=== PATIENT | male | born 1960 | race Caucasian/White ===

== ENCOUNTER → 2018-08-10 | Outpatient (CLI) | payer OTHER, SELFPAY ==
[2015-12-24 00:37] VITALS: BMI 25.4
[2018-08-10 12:24] LABS: Absolute Lymphocyte Count 1.38 X10^3/ul (0.83-4.51); Absolute Neutrophil Count 3.8 X10^3/uL (2.0-7.7); Basophil# 0.02 X10^3/uL; Basophil% 0.3 % (0-1); Eosinophils% 1.7 % (0-5); Hematocrit 50.5 % (40-54); Hemoglobin 16.8 g/dl (13.0-16.5); Lymphocyte # 1.38 X10^3/ul (4.0); Lymphocyte % 24.1 % (19-41); Mean Corp Hgb Conc 33.3 g/gl (32-36); Mean Corpuscular Hgb 30.5 pg (27.0-32.0); Mean Corpuscular Volume 91.8 fL (80-94); Mean Platelet Vol. 10.5 fl (6.2-12.0); Monocyte# 0.44 X10^3/uL; Monocyte% 7.7 % (0-10); Neutrophil # 3.77 X10^3/uL (2.7-7.7); POSITIVE COUNT NO; POSITIVE DIFFERENTIAL NO; POSITIVE MORPHOLOGY NO; Platelet Count 331 K/mm3 (150-450); RBC Distribution Width CV 13.2 % (11.6-14.6); RBC Distribution Width SD 43.7 fl (35.1-43.9); White Blood Count 5.7 K/mm3 (4.4-11.0)
[2018-08-10 13:13] LABS: Vitamin B12 659 pg/mL (211-911)
[2018-08-12 16:29] LABS: ANTINUCLEAR ANTIBODIES DIRECT Negative (Negative)
[2018-08-13 10:13] LABS: Testosterone, % Free 3.36 % (1.50-4.20); Testosterone, Total 134 ng/dL (264-916)
== END | disposition home or self-care (01) ==
PROVIDERS: Family Provider Family Medicine; PCP Family Medicine; Referring Provider Family Medicine; Visit Provider Family Medicine
DX: R53.83 Other fatigue (principal)
CPT/HCPCS: 36415; 82607; 84402; 84403; 84443; 85025; 86038

== ENCOUNTER → 2018-09-10 | Outpatient (CLI) | payer OTHER, SELFPAY ==
[2015-12-24 00:37] VITALS: BMI 25.4
[2018-09-14 09:06] LABS: Testosterone, Free 8.09 ng/dL (5.00-21.00)
[2018-09-15 10:38] LABS: Testosterone, % Free 3.02 % (1.50-4.20); Testosterone, Total 268 ng/dL (264-916)
== END | disposition home or self-care (01) ==
LOC: MFPLAB 08:25
PROVIDERS: Family Provider Family Medicine; PCP Family Medicine; Referring Provider Family Medicine; Visit Provider Family Medicine
DX: R79.89 Other specified abnormal findings of blood chemistry (principal)
CPT/HCPCS: 36415; 84402; 84403

== ENCOUNTER → 2019-08-17 16:55 | Outpatient (CLI) | payer OTHER, SELFPAY ==
[2015-12-24 00:37] VITALS: BMI 25.4
--- NOTE | 2019-08-17 16:59 | RAD_ITS ---
HISTORY: dyspnea on exertion EXAMINATION/TECHNIQUE: XR Chest 2 Views: COMPARISON: 12/23/2015 FINDINGS: Normal heart size. Mild hyperinflation. No focal infiltrate. No vascular congestion or pleural effusion. No pneumothorax. The bony thorax appears intact. RAD/Chest PA and Lateral IMPRESSION: 1. No acute cardiopulmonary disease. 2. Hyperinflation. at 0644 Reported and signed by: Gabriel Woods MD Electronically Signed: Gabriel Woods, at 6:43 EDT Tel , Service support ,
== END ==
PROVIDERS: PCP Family Medicine; Referring Provider Family Medicine; Visit Provider Family Medicine
DX: R06.00 Dyspnea, unspecified (principal)
CPT/HCPCS: 71046

== ENCOUNTER → 2019-08-19 15:46 | Outpatient (CLI) | payer OTHER, SELFPAY ==
[2015-12-24 00:37] VITALS: BMI 25.4
[2019-08-19 17:50] LABS: Absolute Lymphocyte Count 2.17 X10^3/uL (0.83-4.51); Absolute Neutrophil Count 3.5 X10^3/uL (2.0-7.7); Basophil# 0.02 X10^3/uL; Basophil% 0.3 % (0-1); Eosinophil# 0.09 X10^3/uL; Eosinophils% 1.4 % (0-5); Hematocrit 46.8 % (40-54); Hemoglobin 15.2 g/dL (13.0-16.5); Lymphocyte # 2.17 X10^3/ul (4.0); Lymphocyte % 33.6 % (19-41); Mean Corp Hgb Conc 32.5 g/dL (32-36); Mean Corpuscular Hgb 30.7 pg (27.0-32.0); Mean Corpuscular Volume 94.5 fL (80-94); Mean Platelet Vol. 10.3 fl (6.2-12.0); Monocyte% 9.3 % (0-10); NRBC Flagged by Analyzer 0 % (0-5); Neutrophil # 3.54 X10^3/uL (2.7-7.7); Neutrophil % 54.9 % (47-70); Platelet Count 319 K/mm3 (150-450); RBC Distribution Width CV 13.2 % (11.6-14.6); RBC Distribution Width SD 45.6 fl (35.1-43.9); Red Blood Count 4.95 M/mm3 (4.6-6.2); White Blood Count 6.5 K/mm3 (4.4-11.0)
[2019-08-19 18:13] LABS: Vitamin D,25 Hydroxy 31.4 ng/mL
[2019-08-19 18:16] LABS: Hemoglobin A1c 5.6 % (3.8-5.6)
[2019-08-19 18:24] LABS: ALB/GLOB Ratio 1.1 RATIO (0.9-2.4); AST(SGOT) 23 U/L (15-37); Alanine Aminotransfer ALT/SGPT 40 U/L (16-61); Albumin, Serum 3.9 g/dL (3.2-5.0); Alkaline Phosphatase 77 U/L (45-117); Anion Gap 8 (5-15); BUN 16 mg/dL (7-18); BUN/Creat Ratio 17.2 RATIO (10-20); Calcium,Total 9.2 mg/dL (8.5-10.1); Chloride 104 mmol/L (98-107); Cholesterol 213 mg/dL (200); Creatinine, Serum 0.93 mg/dL (0.70-1.30); EST Glomerular Filtration Rate 88 mL/min (>60); Est Glom Filt Rate - Afr Amer 107 mL/min (>60); Globulin 3.7 g/dL (2.2-4.2); Glucose 76 mg/dL (74-106); High Density Lipoprotein 41 mg/dL; Potassium 3.6 mmol/L (3.5-5.1); Protein, Total 7.6 g/dL (6.4-8.2); Sodium Level 138 mmol/L (136-145); Thyroid Stim Hormone (TSH) 1.06 uIU/mL (0.358-3.74); Triglycerides 79 mg/dL; Very Low Density Lipoprotein 16 mg/dL (5-40)
[2019-08-25 09:36] LABS: Testosterone, Free 5.85 ng/dL (5.00-21.00)
[2019-08-25 11:30] LABS: Testosterone, % Free 2.36 % (1.50-4.20); Testosterone, Total 248 ng/dL (264-916)
== END ==
PROVIDERS: PCP Family Medicine; Referring Provider Family Medicine; Visit Provider Family Medicine
DX: R53.83 Other fatigue (principal); Z13.220 Encounter for screening for lipoid disorders; R79.89 Other specified abnormal findings of blood chemistry
CPT/HCPCS: 36415; 80053; 80061; 82306; 83036; 84402; 84403; 84443; 85025

== ENCOUNTER → 2019-08-31 07:23 | Outpatient (CLI) | payer OTHER, SELFPAY ==
--- NOTE | 2019-08-31 10:01 | PFTCOMP_ITS ---
COMPLETE PULMONARY FUNCTION TEST INTERPRETATION Brief HPI: Patient is a 58 year old male, currently under the care of Dr. Ascencio, who presents to [facility] for complete pulmonary function tests secondary to diagnosis of dyspnea. Respiratory therapist reports good effort and reproducible results. Interpretation: Forced expiration spirometry shows no large airways obstructive ventilatory defect with an FEV1 of 114% predicted. There is no significant bronchodilator response by strict ATS criteria. Spirograms are of good quality and plateau normally. The respiratory flow volume loop shows a normal pattern. Lung volumes by body plethysmography show a normal total lung capacity at 7.52 L, 112% predicted. All other lung volumes are within normal limits. Diffusion capacity by carbon monoxide is normal at 127% predicted. The airway resistance is normal. No previous pulmonary function tests were available for review. Impression: These pulmonary function tests are within normal limits
== END ==
PROVIDERS: PCP Family Medicine; Referring Provider Family Medicine; Visit Provider Family Medicine
DX: R06.09 Other forms of dyspnea (principal)
CPT/HCPCS: 94060; 94726; 94729

== ENCOUNTER → 2020-01-02 09:05 | Outpatient (CLI) | payer OTHER, SELFPAY ==
[2015-12-24 00:37] VITALS: BMI 25.4
[2020-01-02 09:51] LABS: Absolute Lymphocyte Count 1.71 X10^3/uL (0.83-4.51); Absolute Neutrophil Count 3.4 X10^3/uL (2.0-7.7); Basophil# 0.06 X10^3/uL; Eosinophil# 0.19 X10^3/uL; Eosinophils% 3.2 % (0-5); Hematocrit 51.9 % (40-54); Hemoglobin 16.4 g/dL (13.0-16.5); Lymphocyte # 1.71 X10^3/ul (4.0); Lymphocyte % 29.2 % (19-41); Mean Corp Hgb Conc 31.6 g/dL (32-36); Mean Corpuscular Hgb 29.9 pg (27.0-32.0); Mean Corpuscular Volume 94.7 fL (80-94); Mean Platelet Vol. 10.3 fl (6.2-12.0); Monocyte# 0.47 X10^3/uL; NRBC Flagged by Analyzer 0 % (0-5); Neutrophil % 58.3 % (47-70); Platelet Count 325 K/mm3 (150-450); RBC Distribution Width CV 12.5 % (11.6-14.6); RBC Distribution Width SD 44.1 fl (35.1-43.9); Red Blood Count 5.48 M/mm3 (4.6-6.2); White Blood Count 5.9 K/mm3 (4.4-11.0)
[2020-01-02 10:04] LABS: Alanine Aminotransfer ALT/SGPT 52 U/L (16-61); Cholesterol 173 mg/dL (200); Creatinine, Serum 0.98 mg/dL (0.70-1.30); EST Glomerular Filtration Rate 83 mL/min (>60); Est Glom Filt Rate - Afr Amer 101 mL/min (>60); High Density Lipoprotein 51 mg/dL; Triglycerides 99 mg/dL; Very Low Density Lipoprotein 20 mg/dL (5-40)
== END ==
PROVIDERS: PCP Family Medicine; Visit Provider Family Medicine
DX: E78.5 Hyperlipidemia, unspecified (principal); J45.909 Unspecified asthma, uncomplicated
CPT/HCPCS: 36415; 80061; 82565; 84460; 85025

== ENCOUNTER 2020-10-02 06:47 | Day surgery (SDC) | payer OTHER, SELFPAY ==
[2020-10-02 07:11] VITALS: BP 113/83; PULSE 76; RESP 14; TEMP 36.9; O2SAT 97; BMI 24.6
[2020-10-02] MEDS: Lactated Ringers 1,000 ML 100 ML IV (07:23)
--- NOTE | 2020-10-02 07:48 | HP.PCM_ITS ---
HPI - General HPI Narrative HETAL BANERJEE, is a 59 M who presents for screening colonoscopy. The patient reports his last colonoscopy was normal and it was 10 years ago. He has no abdominal pain or blood in his stool. He has no family history of colon cancer. [facility] Medical History (Updated 10/02/20 @ 07:[address] Jayant Yu MD) Asthma High cholesterol History of diverticulitis Low iron Shortness of breath on exertion Sleep apnea Wears glasses Home Medications Iron 325 mg PO DAILY 12/24/15 [History Last Taken 12/23/15 09:00] Multivitamin 1 tab PO DAILY 12/24/15 [History Last Taken Unknown] acetaminophen [Tylenol] 650 mg PO Q6H PRN PRN #0 tablet 12/25/15 [Rx Last Taken Unknown] ibuprofen 600 mg PO 4X/DAY PRN #1 tab 12/25/15 [Rx Last Taken Unknown] Lactobacillus acidophilus [Acidophilus] 1,000 mmu cells PO DAILY 09/28/20 [History Last Taken Unknown] albuterol mcg INHALATION 09/28/20 [History Last Taken Unknown] ascorbic acid (vitamin C) [Vitamin C] 500 mg PO DAILY 09/28/20 [History Last Taken Unknown] budesonide [Pulmicort Flexhaler] 1 inh INHALATION DAILY PRN PRN 09/28/20 [History Last Taken Unknown] cholecalciferol (vitamin D3) [Vitamin D3] 125 mcg PO DAILY 09/28/20 [History Last Taken Unknown] pravastatin 40 mg PO DAILY 09/28/20 [History Last Taken Unknown] Allergy/AdvReac Type Severity Reaction Status Date / Time No Known Allergies Allergy Verified 09/28/20 12:19 Social History Smoking Status: Never smoker Past Medical/Surgical History Planned Operation Planned Operative Procedure/s: colonoscopy Previous Hospitalizations/Surgeries HX Hospitalizations: No Any Problems With Anesthesia: No You/Your Family Experience Fever (Hyperthermia) With Anes: No Cholinesterase deficiency: No Cardiovascular Hx Chest Pain within Last 2 months: No Hx of Irregular Heartbeat and/or Afib: No Hx Heart Attack: No Hx Hypertension: No Hx Cardiac Surgery/Stents/Etc.: No Hx Pain in Legs when Walking/Leg Cramps: No Respiratory Hx Chronic Obstructive Pulmonary Disease (COPD): No Hx Asthma: No Hx Emphysema: No Hx Sleep Apnea: Yes CPAP: Yes BIPAP: No Hx Respiratory Tract Infection/Cold (presently): No Result (for STOP score): Positive Hx Smoking: Yes Smoking Status: Never smoker Gastrointestinal Hx Gastrointestinal Bleed: No Hx Ulcer: No Difficulty Chewing/Swallowing: No Hx Unplanned Weight Loss of 20#: No Neurological Hx Seizures: No Hx Multiple Sclerosis: No Hx Parkinson's Disease: No Hx Back Injury/Pain: No Does patient have nerve stimulator: No Blood Disorder Hx Hepatitis: No Hx Cirrhosis: No Hx Anemia: No Hx Blood Disorders: No Genitourinary Hx Renal Disease: No Hx Dialysis: No Musculoskeletal Hx Arthritis: No Hx Rheumatoid Arthritis: No Endocrine Hx Diabetes: No Thyroid Disease: No Psycho/Social Hx Substance Use: No Hx Alcohol Use: No Hx Anxiety: No Hx Depression: No Hx Dementia: No Miscellaneous Hx Cancer: No Recent Exposure to Contagious Disease: No Allergies No Known Allergies Allergy (Verified 09/28/20 12:19) Maternal: Diabetes Paternal: No pertinent history Discharge Who Could Help: friend After D/C, Where Do you Plan to Go: Return Home Vital Signs Vital Signs Vital Signs: 10/02/20 07:11 Temperature 98.4 F Temperature Source Temporal Pulse Rate 76 Respiratory Rate 14 Respiratory Pattern Normal Blood Pressure 113/83 H Blood Pressure Mean 93 Blood Pressure Source Monitor Pulse Ox 97 Oxygen Delivery Method Room Air Weight Weight: 176 lb 9.444 oz Body Mass Index (BMI) 24.6 Physical Exam Const alert and oriented x3 Resp normal respiratory effort and normal air movement Cardio regular rate and regular rhythm GI soft to palpation, non-tender and non-distended Assessment & Plan Assessment/Plan (1) Screen for colon cancer: PLAN: Patient here for screening colonoscopy. I explained endoscopy in detail to the patient. I explained the risks including but not limited to stroke or heart attack with anesthesia, perforation of the GI tract, bleeding, infection. I explained that any of these could necessitate further emergency surgery. The patient understands and all questions were answered sufficiently. The patient wishes to proceed with procedure. Jayant Yu MD Pager: [facility] [address] [place] [address], [address] [place] [address] Office: Surgery Risks - Colonoscopy Risks Include but are not Limited To: Risks include but are not limited to: Bleeding, perforation requiring further surgery, inability to complete colonoscopy requiring barium enema.
[2020-10-02 08:12] VITALS: BP 111/91; BP 113/83; PULSE 67; RESP 16; TEMP 36.1; O2SAT 95
--- NOTE | 2020-10-02 08:12 | OP.COLON_ITS ---
Patient Name: Bertram Thomas Procedure Date: 10/02/2020 7:48 AM Date of : 1960 Age: 59 Procedure: Colonoscopy Indications: Screening for colorectal malignant neoplasm Providers: Jayant Yu MD Referring MD: Jayant Yu MD Medicines: Monitored Anesthesia Care Patient Profile: This is a 59 year old male. Refer to note in patient chart for documentation of history and physical. Last Colonoscopy: 10 years ago. Complications: No immediate complications. Procedure: Pre-Anesthesia Assessment: - Prior to the procedure, a History and Physical was performed, and patient medications and allergies were reviewed. The patient's tolerance of previous anesthesia was also reviewed. The risks and benefits of the procedure and the sedation options and risks were discussed with the patient. All questions were answered, and informed consent was obtained. Prior Anticoagulants: The patient has taken no previous anticoagulant or antiplatelet agents. After reviewing the risks and benefits, the patient was deemed in satisfactory condition to undergo the procedure. After I obtained informed consent, the scope was passed under direct vision. Throughout the procedure, the patient's blood pressure, pulse, and oxygen saturations were monitored continuously. The colonoscope was introduced through the anus and advanced to the cecum, identified by appendiceal orifice and ileocecal valve. The colonoscopy was performed without difficulty. The patient tolerated the procedure well. The quality of the bowel preparation was good. Scope In: 7:56:25 AM Scope Withdrawal Time 0 hours 6 minutes 2 seconds Scope Out: 8:08:28 AM Total Procedure Duration Time 0 hours 12 minutes 3 seconds Findings: The entire examined colon appeared normal on direct and retroflexion views. Impression: - The entire examined colon is normal on direct and retroflexion views. - No specimens collected. Recommendation: - Discharge patient to home. - Resume previous diet. - Continue present medications. - Repeat colonoscopy in 10 years for screening purposes. Procedure Code(s): --- Professional --- 60852, Colonoscopy, flexible; diagnostic, including collection of specimen(s) by brushing or washing, when performed (separate procedure) Diagnosis Code(s): --- Professional --- Z12.11, Encounter for screening for malignant neoplasm of colon CPT copyright 2017 [employer]. All rights reserved. The codes documented in this report are preliminary and upon appeals representative review may be revised to meet current compliance requirements. Jayant Yu MD 10/02/2020 8:12:08 AM This report has been signed electronically. Number of Addenda: 0 Note Initiated On: 10/02/2020 7:48 AM
--- NOTE | 2020-10-02 08:13 | OP.CCLET_ITS ---
10/02/2020 Thai Asecncio [address] [place] [address] Re : Colonoscopy procedure for Bertram Thomas Dear Dr. Ascencio This procedure was performed on Friday, October 02, 2020. My impressions and recommendations are as follows: Impressions : - The entire examined colon is normal on direct and retroflexion views. - No specimens collected. Recommendations : - Discharge patient to home. - Resume previous diet. - Continue present medications. - Repeat colonoscopy in 10 years for screening purposes. My findings are described in the full procedure note, which is enclosed. If I can be of further assistance, please feel free to contact me at Doctor phone number(s): , Work: . Sincerely, Jayant Yu MD 10/02/2020 8:12:08 AM This report has been signed electronically.
[2020-10-02 08:17] VITALS: BP 105/85; BP 113/83; PULSE 61; RESP 18; O2SAT 97
[2020-10-02 08:22] VITALS: BP 109/79; BP 113/83; PULSE 67; RESP 16; O2SAT 95
[2020-10-02 08:27] VITALS: BP 104/74; BP 113/83; PULSE 62; RESP 16; TEMP 36.6; O2SAT 96
[2020-10-02 08:45] VITALS: BP 113/83
== END 2020-10-02 08:49 ==
LOC: EN 06:47 → AC 06:48
PROVIDERS: PCP Family Medicine; Referring Provider Family Medicine; Visit Provider Surgery
PROC: 0DJD8ZZ Inspection of Lower Intestinal Tract, Via Natural or Artificial Opening Endoscopic (ICD-10-PCS; CPT 45378; principal; 2020-10-02 07:55)
DX: Z12.11 Encounter for screening for malignant neoplasm of colon (principal); E78.00 Pure hypercholesterolemia, unspecified; G47.30 Sleep apnea, unspecified; J45.909 Unspecified asthma, uncomplicated; Z87.19 Personal history of other diseases of the digestive system; Z79.899 Other long term (current) drug therapy
CPT/HCPCS: 45378; 87426; C9803; J7120; J2405

== ENCOUNTER 2020-11-22 16:36 | Emergency (ER) | payer OTHER, SELFPAY ==
[2020-11-22 16:38] VITALS: BP 100/78; PULSE 108; RESP 17; TEMP 37; O2SAT 95; BMI 23.7
--- NOTE | 2020-11-22 17:08 | EKG12_ITS ---
Test Reason : SYNCOPE Blood Pressure : / mmHG Vent. Rate : 094 BPM Atrial Rate : 094 BPM P-R Int : 128 ms QRS Dur : 082 ms QT Int : 326 ms P-R-T Axes : 040 033 047 degrees QTc Int : 407 ms Normal sinus rhythm Normal ECG Confirmed by KVNG LOPEZ, TOMAS ([id number]), development editor CATALINA TORRES ([id number]) on 11/27/2020 8:28:56 AM Referred By: JORJE Confirmed By:ALBERTO CALDERON MD
--- NOTE | 2020-11-22 17:10 | EDS_ITS ---
HPI History of Present Illness Chief Complaint: Syncope Narrative Narrative: Patient with past medical history of asthma, and obstructive sleep apnea presents with generalized weakness, fever, and chills,. He states that his symptoms began last Thursday, approximately 8 days ago. The following day, he went to [facility] and had a Covid test performed. He states he got his results 2 days following that, and was diagnosed as COVID-19 positive. A few days ago, he felt very weak, and was trying to feed his cat, and had a brief syncopal episode. He denies any true injury from the syncopal episode. He states he feels short of breath, has a nonproductive cough, and just generally weak. He denies any current fever, but has been chilling. No chest pain. Continued shortness of breath. He denies any leg swelling. No other symptoms. [facility] Medical History (Updated 11/22/20 @ 18:53 by Richie Almeida MD) Asthma High cholesterol History of diverticulitis Low iron Shortness of breath on exertion Sleep apnea Wears glasses Home Medications Iron 325 mg PO DAILY 12/24/15 [History Last Taken 12/23/15 09:00] Multivitamin 1 tab PO DAILY 12/24/15 [History Last Taken Unknown] acetaminophen [Tylenol] 650 mg PO Q6H PRN PRN #0 tablet 12/25/15 [Rx Last Taken Unknown] ibuprofen 600 mg PO 4X/DAY PRN #1 tab 12/25/15 [Rx Last Taken Unknown] Lactobacillus acidophilus [Acidophilus] 1,000 mmu cells PO DAILY 09/28/20 [History Last Taken Unknown] albuterol 1 mcg INHALATION Q4H PRN PRN 09/28/20 [History Last Taken Unknown] ascorbic acid (vitamin C) [Vitamin C] 500 mg PO DAILY 09/28/20 [History Last Taken Unknown] budesonide [Pulmicort Flexhaler] 1 inh INHALATION DAILY PRN PRN 09/28/20 [History Last Taken Unknown] cholecalciferol (vitamin D3) [Vitamin D3] 125 mcg PO DAILY 09/28/20 [History Last Taken Unknown] pravastatin 40 mg PO DAILY 09/28/20 [History Last Taken Unknown] prednisone 40 mg PO DAILY #14 tab 11/22/20 [Rx Last Taken Unknown] Allergy/AdvReac Type Severity Reaction Status Date / Time No Known Allergies Allergy Verified 11/22/20 16:38 Social History Smoking Status: Never smoker ROS ROS ED ROS Narrative Constitutional: Positive fever, positive chills. HEENT: No sore throat. No neck pain. No loss of vision. No rhinorrhea. Cardiovascular: No chest pain. No palpitations. No pedal edema. Respiratory: Positive nonproductive cough, increased shortness of breath. Abdominal: No abdominal pain. No nausea. No vomiting. Genitourinary: No dysuria. No hematuria. Musculoskeletal: No myalgias. No arthralgias. Neurologic: No headaches. No dizziness. No lightheadedness. Reported syncope. Generalized weakness. Skin: No rash. No change in color. Psychiatric: No depression. No anxiety. EXAM Physical Exam Narrative Exam Narrative: Afebrile. Vital signs noted. HEENT: Normocephalic. Atraumatic. PERRL, EOMI. Neck soft and supple. No point tenderness or step off. Cardiovascular: Regular rate and rhythm, intermittent tachycardia. No murmurs, rubs, or gallops appreciated. Respiratory: No tachypnea. Lungs clear to auscultation bilaterally. Gastrointestinal: Abdomen soft, nontender, with normoactive bowel sounds. No rebound or guarding. Neurological: Awake. Alert. Nonfocal, nonlateralizing. Skin: No rash. Normal color. No pallor. Musculoskeletal: No pedal edema. Full range of motion extremities. Const Vital Signs: 11/22/20 16:38 11/22/20 17:33 11/22/20 18:20 Temperature 98.6 F Temperature Source Temporal Pulse Rate 108 H 98 Respiratory Rate 17 18 Respiratory Effort Normal Non-Labored Respiratory Pattern Normal Blood Pressure 100/78 122/84 H Blood Pressure Mean 85 96 Pulse Ox 95 95 Oxygen Delivery Method Room Air Room Air MDM MDM MDM Narrative Medical decision making narrative: Patient has been diagnosed as an outpatient with COVID-19. I do feel that these are his symptoms of disease. Blood pressure is currently 100/78. Pulse slightly elevated at 108. He is afebrile. Pulse ox at rest is 95%. He will be ambulated. His EKG demonstrates normal sinus rhythm at 94 bpm without ectopy or acute ST changes, no significant change from previous. He has a low white count of 3.9 consistent with his COVID-19 diagnosis. Hemoglobin stable at 16.7, mild hemoconcentration. His electrolyte panel is grossly unremarkable. Lactic acid is normal at 0.9. His chest x-ray shows no acute process. He states he has enough inhalers at home. I will start him on a prednisone burst. Given his chronic lung disease and his age over 18, he was referred for monoclonal antibody treatment for his COVID-19. I feel he can be discharged safely home with follow-up. Return instructions to the emergency department were reviewed. Disposition is discharged home in stable condition. Lab Data Attestation: I reviewed the patient's lab results. Labs: Laboratory Results - last 24 hr 11/22/20 11/22/20 11/22/20 17:30 17:30 17:30 WBC 3.9 L RBC 5.40 Hgb 16.7 H Hct 49.2 MCV 91.1 MCH 30.9 MCHC 33.9 RDW Std Deviation 41.4 RDW Coeff of Yahir 12.3 Plt Count 155 MPV 10.5 Immature Gran % (Auto) 0.500 Neut % (Auto) 66.9 Lymph % (Auto) 21.3 Morehouse % (Auto) 10.3 H Eos % (Auto) 0.5 Baso % (Auto) 0.5 Absolute Neuts (auto) 2.6 Absolute Lymphs (auto) 0.83 Nucleated RBC % 0 Sodium 136 Potassium 4.1 Chloride 102 Carbon Dioxide 28.0 Anion Gap 6 BUN 15 Creatinine 1.09 Estim Creat Clear Calc 77.72 Est GFR (MDRD) Af Amer 89 Est GFR (MDRD) Non-Af 73 BUN/Creatinine Ratio 13.8 Glucose 112 H Lactic Acid 0.9 Calcium 8.6 Total Bilirubin 0.50 AST 42 H ALT 53 Alkaline Phosphatase 67 Total Protein 7.1 Albumin 3.2 Globulin 3.9 Albumin/Globulin Ratio 0.8 L Radiography Diagnostic Testing: Radiology Impression Chest X-Ray 11/22/20 17:40 IMPRESSION: No acute process Electronically Signed: Mc Llamas MD at 18:18 EDT , Service support , Discharge Plan Triage Chief Complaint: Syncope ED Provider: Richie Almeida Dx/Rx/DC Orders Clinical Impression: COVID-19, Dehydration, Syncope and collapse Instructions: Coronavirus Disease 2019 (COVID-19): Caring for Yourself or Others, Dehydration, ED Dizziness or Syncope ... Prescriptions: New prednisone 20 mg tablet 40 mg PO DAILY Qty: 14 RF: 0 No Action Iron 325 mg PO DAILY RF: 0 Multivitamin 1 tab PO DAILY RF: 0 acetaminophen [Tylenol] 325 MG tablet 650 mg PO Q6H PRN PRN (Reason: Mild Pain (scale 0-3)/T>100.7) Qty: 0 RF: 0 ibuprofen 600 MG tablet 600 mg PO 4X/DAY PRN (Reason: Pain) Qty: 1 RF: 0 ascorbic acid (vitamin C) [Vitamin C] 500 mg Tablet 500 mg PO DAILY RF: 0 Acidophilus Tablet 1,000 mmu cells PO DAILY RF: 0 cholecalciferol (vitamin D3) [Vitamin D3] 125 mcg (5,000 unit) Tablet 125 mcg PO DAILY RF: 0 pravastatin 40 mg tablet 40 mg PO DAILY RF: 0 albuterol 90 mcg/actuation Aerosol 1 mcg INHALATION Q4H PRN PRN (Reason: Shortness Of Breath) RF: 0 Pulmicort Flexhaler 90 mcg/actuation aerosol powdr breath activated 1 inh INHALATION DAILY PRN PRN (Reason: Wheezing) RF: 0 Other Ambulatory Orders: COVID Outpatient Monoclonal Antibody Referral (Routine) Location: None Selected Ordered By: Richie Almeida Primary Care Provider: Thai Ascencio Referrals: Thai Ascencio MD [Primary Care Provider] - 11/29/20 Disposition Disposition: Home, Self Care
[2020-11-22] MEDS: 0.9% Normal Saline 1,000 ML 1000 ML IV (17:32)
[2020-11-22 17:36] LABS: Absolute Lymphocyte Count 0.83 X10^3/uL (0.83-4.51); Absolute Neutrophil Count 2.6 X10^3/uL (2.0-7.7); Basophil# 0.02 X10^3/uL; Basophil% 0.5 % (0-1); Eosinophil# 0.02 X10^3/uL; Eosinophils% 0.5 % (0-5); Hematocrit 49.2 % (40-54); Hemoglobin 16.7 g/dL (13.0-16.5); Lymphocyte # 0.83 X10^3/ul (0.83-4.51); Lymphocyte % 21.3 % (19-41); Mean Corp Hgb Conc 33.9 g/dL (32-36); Mean Corpuscular Hgb 30.9 pg (27.0-32.0); Mean Corpuscular Volume 91.1 fL (80-94); Mean Platelet Vol. 10.5 fl (6.2-12.0); Monocyte% 10.3 % (0-10); NRBC Flagged by Analyzer 0 % (0-5); Neutrophil # 2.61 X10^3/uL (2.7-7.7); Neutrophil % 66.9 % (47-70); Platelet Count 155 K/mm3 (150-450); RBC Distribution Width CV 12.3 % (11.6-14.6); RBC Distribution Width SD 41.4 fl (35.1-43.9); White Blood Count 3.9 K/mm3 (4.4-11.0)
--- NOTE | 2020-11-22 17:40 | RAD_ITS ---
STUDY: X-RAY CHEST REASON FOR EXAM: Male, 59 years old. Shortness of Breath with Covid TECHNIQUE: Single AP portable view of the chest. COMPARISON: JULY [id number] FINDINGS: The lungs are clear and expanded. There is no demonstrated pleural abnormality. Normal size heart. Normal mediastinum and jordan. Normal visualized pulmonary arteries. There is atherosclerotic calcification of the aortic arch with tortuosity. Stable visualized osseous structures. There is no demonstrated abnormality of the visualized soft tissue structures of the upper abdomen. RAD/Chest 1 View (Portable) IMPRESSION: No acute process Electronically Signed: Mc Llamas MD at 18:18 EDT , Service support ,
[2020-11-22 17:56] LABS: ALB/GLOB Ratio 0.8 RATIO (0.9-2.4); AST(SGOT) 42 U/L (15-37); Alanine Aminotransfer ALT/SGPT 53 U/L (16-61); Albumin, Serum 3.2 g/dL (3.2-5.0); Alkaline Phosphatase 67 U/L (45-117); Anion Gap 6 (5-15); BUN 15 mg/dL (7-18); BUN/Creat Ratio 13.8 RATIO (10-20); Calcium,Total 8.6 mg/dL (8.5-10.1); Chloride 102 mmol/L (98-107); Creatinine, Serum 1.09 mg/dL (0.70-1.30); EST Glomerular Filtration Rate 73 mL/min (>60); Est Glom Filt Rate - Afr Amer 89 mL/min (>60); Estimated Creatinine Clearance 77.72 ml/min; Globulin 3.9 g/dL (2.2-4.2); Glucose 112 mg/dL (74-106); Potassium 4.1 mmol/L (3.5-5.1); Protein, Total 7.1 g/dL (6.4-8.2); Sodium Level 136 mmol/L (136-145)
[2020-11-22 18:05] LABS: Lactic Acid 0.9 mmol/L (0.4-1.9)
[2020-11-22 18:20] VITALS: BP 122/84; PULSE 98; RESP 18; O2SAT 95
[2020-11-22 18:29] VITALS: O2SAT 95
[2020-11-22 19:33] VITALS: BP 112/85; PULSE 90; RESP 23; O2SAT 95
== END 2020-11-22 19:43 | disposition home or self-care (01) ==
PROVIDERS: Emergency Provider Emergency Medicine; PCP Family Medicine
DX: U07.1 COVID-19 (principal); E86.0 Dehydration; R55 Syncope and collapse; E78.00 Pure hypercholesterolemia, unspecified; G47.33 Obstructive sleep apnea (adult) (pediatric); J45.909 Unspecified asthma, uncomplicated; Z87.19 Personal history of other diseases of the digestive system; Z79.899 Other long term (current) drug therapy
CPT/HCPCS: 71045; 80053; 83605; 85025; 93005; 96360; 96361; 99283; J7030; A4216

== ENCOUNTER → 2022-03-04 | Outpatient (CLI) | payer OTHER, SELFPAY ==
[2022-03-04 10:06] LABS: Absolute Lymphocyte Count 1.49 X10^3/uL (0.83-4.51); Absolute Neutrophil Count 4.4 X10^3/uL (2.0-7.7); Basophil# 0.05 X10^3/uL; Basophil% 0.8 % (0-1); Eosinophil# 0.08 X10^3/uL; Eosinophils% 1.2 % (0-5); Hematocrit 49.9 % (40-54); Hemoglobin 16.7 g/dL (13.0-16.5); Lymphocyte # 1.49 X10^3/ul (0.83-4.51); Lymphocyte % 22.8 % (19-41); Mean Corp Hgb Conc 33.5 g/dL (32-36); Mean Corpuscular Hgb 31.9 pg (27.0-32.0); Mean Corpuscular Volume 95.2 fL (80-94); Monocyte# 0.51 X10^3/uL; Monocyte% 7.8 % (0-10); NRBC Flagged by Analyzer 0 % (0-5); Neutrophil # 4.38 X10^3/uL (2.7-7.7); Neutrophil % 66.9 % (47-70); Platelet Count 325 K/mm3 (150-450); RBC Distribution Width SD 45.9 fl (35.1-43.9); Red Blood Count 5.24 M/mm3 (4.6-6.2); White Blood Count 6.5 K/mm3 (4.4-11.0)
[2022-03-04 14:17] LABS: ALB/GLOB Ratio 1.4 RATIO (0.9-2.4); AST(SGOT) 16 U/L (15-37); Alanine Aminotransfer ALT/SGPT 31 U/L (16-61); Albumin, Serum 3.4 g/dL (3.2-5.0); Alkaline Phosphatase 59 U/L (45-117); Anion Gap 8 (5-15); BUN 14 mg/dL (7-18); BUN/Creat Ratio 15.6 RATIO (10-20); Calcium,Total 9.1 mg/dL (8.5-10.1); Chloride 107 mmol/L (98-107); Cholesterol 147 mg/dL (200); EST Glomerular Filtration Rate 92 mL/min (>60); Est Glom Filt Rate - Afr Amer 111 mL/min (>60); Ferritin 75 ng/mL (26-388); Globulin 2.4 g/dL (2.2-4.2); Glucose 87 mg/dL (74-106); High Density Lipoprotein 45 mg/dL; PSA,Total - Annual Screen 0.88 ng/mL (0.00-4.00); Potassium 4.5 mmol/L (3.5-5.1); Protein, Total 5.8 g/dL (6.4-8.2); Sodium Level 142 mmol/L (136-145); Triglycerides 174 mg/dL; Very Low Density Lipoprotein 35 mg/dL (5-40)
== END | disposition home or self-care (01) ==
LOC: MFPLAB 08:58
PROVIDERS: PCP Family Medicine; Visit Provider Family Medicine
DX: Z52.008 Unspecified donor, other blood (principal)
CPT/HCPCS: 36415; 80053; 80061; 82728; 84153; 85025; G0103

== ENCOUNTER → 2022-09-03 | Outpatient (CLI) | payer OTHER, SELFPAY ==
[2022-09-03 18:35] LABS: Erythrocyte Sedimentation Rate 10 mm/hr (0-20)
[2022-09-03 18:39] LABS: Absolute Lymphocyte Count 1.68 X10^3/uL (0.83-4.51); Absolute Neutrophil Count 3.7 X10^3/uL (2.0-7.7); Basophil# 0.07 X10^3/uL; Basophil% 1.2 % (0-1); Eosinophil# 0.09 X10^3/uL; Eosinophils% 1.5 % (0-5); Hematocrit 48.2 % (40-54); Hemoglobin 15.6 g/dL (13.0-16.5); Lymphocyte # 1.68 X10^3/ul (0.83-4.51); Lymphocyte % 27.8 % (19-41); Mean Corp Hgb Conc 32.4 g/dL (32-36); Mean Corpuscular Hgb 30.8 pg (27.0-32.0); Mean Corpuscular Volume 95.1 fL (80-94); Mean Platelet Vol. 10.4 fl (6.2-12.0); Monocyte% 8.3 % (0-10); NRBC Flagged by Analyzer 0 % (0-5); Neutrophil # 3.67 X10^3/uL (2.7-7.7); Neutrophil % 60.7 % (47-70); Platelet Count 343 K/mm3 (150-450); RBC Distribution Width CV 12.8 % (11.6-14.6); RBC Distribution Width SD 44.7 fl (35.1-43.9); Red Blood Count 5.07 M/mm3 (4.6-6.2)
[2022-09-03 18:46] LABS: Vitamin B12 378 pg/mL (211-911)
[2022-09-03 19:05] LABS: ALB/GLOB Ratio 1.1 RATIO (0.9-2.4); AST(SGOT) 21 U/L (15-37); Alanine Aminotransfer ALT/SGPT 33 U/L (16-61); Albumin, Serum 3.7 g/dL (3.2-5.0); Alkaline Phosphatase 90 U/L (45-117); Anion Gap 8 (5-15); BUN 11 mg/dL (7-18); BUN/Creat Ratio 12.7 RATIO (10-20); Calcium,Total 9.2 mg/dL (8.5-10.1); Chloride 109 mmol/L (98-107); Cholesterol 160 mg/dL (200); Creatinine, Serum 0.86 mg/dL (0.70-1.30); EST Glomerular Filtration Rate 95 mL/min (>60); Est Glom Filt Rate - Afr Amer 115 mL/min (>60); Ferritin 83 ng/mL (26-388); Globulin 3.3 g/dL (2.2-4.2); Glucose 88 mg/dL (74-106); High Density Lipoprotein 41 mg/dL; Sodium Level 140 mmol/L (136-145); Triglycerides 162 mg/dL; Very Low Density Lipoprotein 32 mg/dL (5-40)
[2022-09-04 08:24] LABS: PTHIN 54.1 pg/mL (18.4-80.1)
[2022-09-05 12:08] LABS: ANTINUCLEAR ANTIBODIES DIRECT Negative (Negative)
[2022-09-05 14:09] LABS: PROEL- A/G Ratio 1.5 (0.7-1.7); PROEL- Albumin 3.8 g/dL (2.9-4.4); PROEL- Alpha-1 Globulin 0.2 g/dL (0.0-0.4); PROEL- Alpha-2 Globulin 0.7 g/dL (0.4-1.0); PROEL- Gamma Globulin 0.6 g/dL (0.4-1.8); PROEL- Globulin, Total 2.6 g/dL (2.2-3.9); PROEL- TOTAL PROTEIN 6.4 g/dL (6.0-8.5)
== END | disposition home or self-care (01) ==
LOC: MFPLAB 15:49
PROVIDERS: PCP Family Medicine; Visit Provider Family Medicine
DX: R20.2 Paresthesia of skin (principal); E78.5 Hyperlipidemia, unspecified
CPT/HCPCS: 36415; 80053; 80061; 82607; 82728; 82746; 83970; 84165; 85025; 85652; 86038; 86225; 86235

== ENCOUNTER → 2022-10-22 | Outpatient (CLI) | payer OTHER, SELFPAY ==
--- NOTE | 2022-10-22 15:05 | NEURO ---
NCS and/or EMG Patient Report Ordering Doctor: Thai Ascencio DATE OF SERVICE: 10/22/22 Bertram presents for electrodiagnostic testing of the lower limbs. He reports a several year history of tingling in both legs from the knees into his calves. Electrodiagnostic findings right peroneal motor nerve demonstrates normal distal latency, amplitude and conduction velocity. Left peroneal motor response is within normal limits. Tibial motor response is within normal limits bilaterally. Borderline prolonged right and left peroneal F-wave. H reflex is prolonged bilaterally. Prolonged right and left sural latency. Normal superficial peroneal responses. Needle EMG testing was performed in the lower limbs. All muscles tested showed no evidence of denervation with normal motor unit action potentials. Electrodiagnostic impression: This is an abnormal study in the lower limbs 1. Electrodiagnostic findings suggestive of mild sensory polyneuropathy, as evidenced by prolonged sural responses and H-reflexes. 2. No electrodiagnostic evidence is noted for lumbosacral radiculopathy. Multi Select Codes Neurology Neurology Interp Codes: 11007-32 Musc test done w/n test comp (interp) (2) and 95394-82 Nrv cndj test 9-10 studies (interp)
== END | disposition home or self-care (01) ==
PROVIDERS: PCP Family Medicine; Referring Provider Family Medicine; Visit Provider Family Medicine
DX: R20.2 Paresthesia of skin (principal)
CPT/HCPCS: 95886; 95911

== ENCOUNTER → 2023-07-24 | Outpatient (CLI) | payer OTHER, SELFPAY ==
[2023-07-24 06:53] LABS: Absolute Lymphocyte Count 1.56 X10^3/uL (0.83-4.51); Absolute Neutrophil Count 3.1 X10^3/uL (2.0-7.7); Basophil# 0.04 X10^3/uL; Basophil% 0.7 % (0-1); Eosinophil# 0.14 X10^3/uL; Eosinophils% 2.6 % (0-5); Hematocrit 46.3 % (40-54); Hemoglobin 15.2 g/dL (13.0-16.5); Lymphocyte # 1.56 X10^3/ul (0.83-4.51); Lymphocyte % 28.9 % (19-41); Mean Corp Hgb Conc 32.8 g/dL (32-36); Mean Corpuscular Hgb 30.9 pg (27.0-32.0); Mean Corpuscular Volume 94.1 fL (80-94); Monocyte# 0.55 X10^3/uL; Monocyte% 10.2 % (0-10); NRBC Flagged by Analyzer 0 % (0-5); Neutrophil # 3.09 X10^3/uL (2.7-7.7); Neutrophil % 57.2 % (47-70); Platelet Count 304 K/mm3 (150-450); RBC Distribution Width CV 12.9 % (11.6-14.6); RBC Distribution Width SD 44.8 fl (35.1-43.9); Red Blood Count 4.92 M/mm3 (4.6-6.2); White Blood Count 5.4 K/mm3 (4.4-11.0)
[2023-07-24 08:11] LABS: ALB/GLOB Ratio 1.2 RATIO (0.9-2.4); AST(SGOT) 22 U/L (15-37); Alanine Aminotransfer ALT/SGPT 31 U/L (16-61); Albumin, Serum 3.7 g/dL (3.2-5.0); Alkaline Phosphatase 81 U/L (45-117); Anion Gap 4 (5-15); BUN 13 mg/dL (7-18); BUN/Creat Ratio 12.6 RATIO (10-20); Calcium,Total 8.9 mg/dL (8.5-10.1); Chloride 107 mmol/L (98-107); Cholesterol 137 mg/dL (200); Creatinine, Serum 1.03 mg/dL (0.70-1.30); EST Glomerular Filtration Rate 78 mL/min (>60); Est Glom Filt Rate - Afr Amer 94 mL/min (>60); Globulin 3.2 g/dL (2.2-4.2); Glucose 88 mg/dL (74-106); High Density Lipoprotein 42 mg/dL; Protein, Total 6.9 g/dL (6.4-8.2); Sodium Level 140 mmol/L (136-145); Triglycerides 93 mg/dL; Very Low Density Lipoprotein 19 mg/dL (5-40)
== END | disposition home or self-care (01) ==
LOC: LAB 06:00
PROVIDERS: PCP Family Medicine; Referring Provider Family Medicine; Visit Provider Family Medicine
DX: E78.5 Hyperlipidemia, unspecified (principal); J45.30 Mild persistent asthma, uncomplicated; G47.9 Sleep disorder, unspecified
CPT/HCPCS: 36415; 80053; 80061; 85025

== ENCOUNTER → 2024-08-31 | Outpatient (CLI) | payer OTHER, SELFPAY ==
[2024-08-31 10:16] LABS: Absolute Lymphocyte Count 1.63 X10^3/uL (0.83-4.51); Absolute Neutrophil Count 3.3 X10^3/uL (2.0-7.7); Basophil# 0.06 X10^3/uL; Basophil% 1.1 % (0-1); Eosinophil# 0.06 X10^3/uL; Eosinophils% 1.1 % (0-5); Hematocrit 48.5 % (40-54); Hemoglobin 15.7 g/dL (13.0-16.5); Lymphocyte # 1.63 X10^3/ul (0.83-4.51); Lymphocyte % 29.2 % (19-41); Mean Corp Hgb Conc 32.4 g/dL (32-36); Mean Corpuscular Hgb 30.5 pg (27.0-32.0); Mean Corpuscular Volume 94.4 fL (80-94); Mean Platelet Vol. 10.3 fl (6.2-12.0); Monocyte# 0.54 X10^3/uL; Monocyte% 9.7 % (0-10); NRBC Flagged by Analyzer 0 % (0-5); Neutrophil # 3.27 X10^3/uL (2.7-7.7); Neutrophil % 58.5 % (47-70); Platelet Count 353 K/mm3 (150-450); RBC Distribution Width CV 12.9 % (11.6-14.6); RBC Distribution Width SD 44.7 fl (35.1-43.9); Red Blood Count 5.14 M/mm3 (4.6-6.2); White Blood Count 5.6 K/mm3 (4.4-11.0)
--- OUTSIDE RECORDS SUMMARY | 2024-08-31 10:35 | XMS RPT_ITS | CCD ---
Author Organization [facility] Care Team Providers Care Panel Raiser Operator Name Role Phone Dr. Karen Ascencio Primary Care Provider [phone] Dr. Karen Ascencio Referring Provider [phone] Karen Ascencio Other Provider Dr. Rachel Serna Attending Provider Karen Ascencio Referring Unavailable Karen Ascencio Attending Unavailable Karen Ascencio Primary Care Unavailable Sonu LOPEZ, Karen Brower Primary Care Provider [phone] [place] SUN Referring Unavailable PH[place]ENIX SUN Attending Unavailable KAREN ASCENCIO Primary Care Unavailable Medications Current Medications Medication Drug Class(es) Dates Sig (Normalized) Sig (Original) acetaminophen 325 mg oral tablet (4 sources) Start: 12-25-2015 take 2 tablets by mouth every six hours as needed Acetaminophen (Tylenol) 325 MG tablet Active 650 MG PO EVERY 6 HOURS NEEDED 0 December 25, 2015 12:00am Albuterol (4 sources) beta2-Adrenergic Agonist Start: 09-28-2020 take 1 ug by inhalation every four hours as needed Albuterol Active 1 MCG INHALATION EVERY 4 HOURS NEEDED September 28, 2020 12:00am Start: 09-28-2020 take 1 ug by inhalat ion every four hours as needed Albuterol Active 1 MCG INHALATION EVERY 4 HOURS NEEDED September 27, 2020 11:00pm ascorbic acid 500 mg oral tablet (4 sources) Vitamin C Start: 09-28-2020 take 1 tablet by mouth once daily Ascorbic Acid (Vitamin C) (Vitamin C) 500 mg Tablet Active 500 MG PO DAILY September 28, 2020 12:00am 60 actuat budesonide 0.09 mg/actuat dry powder inhaler (4 sources) Corticosteroid Start: 09-28-2020 take 90 ug by inhalation once daily as needed Budesonide (Pulmicort Flexhaler) 90 mcg/actuation aerosol powdr breath activated Active 1 INH INHALATION DAILY NEEDED September 28, 2020 12:00am cholecalciferol 0.125 mg oral tablet (4 sources) Vitamin D Start: 09-28-2020 take 1 tablet by mouth once daily Cholecalciferol (Vitamin D3) (Vitamin D3) 125 mcg (5,000 unit) Tablet Active 125 MCG PO DAILY September 28, 2020 12:00am ibuprofen 600 mg oral tablet (4 sources) Nonsteroidal Anti-inflammatory Drug Start: 12-25-2015 take 600 mg by mouth four times daily Ibuprofen Active 600 MG PO 4 TIMES DAILY December 25, 2015 10:47am Iron (4 sources) Start: 12-24-2015 take 325 mg by mouth once daily Iron Active 325 MG PO DAILY December 24, 2015 12:00am Start: 12-24-2015 take 325 mg by mouth once danii y Iron Active 325 MG PO DAILY December 23, 2015 11:00pm Lactobacillus acidophilus (4 sources) Start: 09-28-2020 Lactobacillus Acidophilus (Acidophilus) Tablet Active 1000 MMU CELLS PO DAILY September 28, 2020 12:00am Start: 09-28-2020 Lactobacillus Acidophilus (Acidophilus) Tablet Active 1000 MMU CELLS PO DAILY September 27, 2020 11:00pm Multivitamin preparation (4 sources) Start: 12-24-2015 take 1 tablet by mouth once daily Multivitamin Active 1 TABLET PO DAILY December 24, 2015 12:00am Start: 12-24-2015 take 1 tablet by brisa once daily Multivitamin Active 1 TABLET PO DAILY December 23, 2015 11:00pm pravastatin sodium 40 mg oral tablet (4 sources) HMG-CoA Reductase Inhibitor Start: 09-28-2020 take 40 mg by mouth once daily Pravastatin Active 40 MG PO DAILY September 28, 2020 12:00am predniSONE 20 mg oral tablet (4 sources) Start: 11-22-2020 take 40 mg by mouth once daily Prednisone Active 40 MG PO DAILY November 22, 2020 12:00am Problems Problem Classification Problem Date Documented Da te Episodic/Chronic Disorders of lipid metabolism (1 source) Hyperlipidemia, unspecified; Translations: [Hyperlipidemia, unspecified] Onset: 07-29-2023 Chronic E Codes: Natural/environment (4 sources) Cat bite - wound; Translations: [Bitten by cat, initial encounter] 12-24-2015 Episodic Fluid and electrolyte disorders (4 sources) Dehydration; Translations: [Dehydration] 11-22-2020 Episodic Open wounds of extremities (4 sources) Infection of hand due to bite; Translations: [Open bite of right hand, initial encounter] 12-24-2015 Episodic Other screening for suspected conditions (not mental disorders or infectious disease) (4 sources) Patient encounter status; Translations: [Encounter for screening for malignant neoplasm of colon] 10-02-2020 Episodic Other upper respiratory disease (1 source) Vocal cord dysfunction; Translations: [Other diseases of vocal cords] 06-01-2024 Episodic Skin and subcutaneous tissue infections (8 sources) Cellulitis of upper limb; Translations: [Cellulitis of right upper limb] 12-24-2015 Episodic Syncope (4 sources) Syncope and collapse; Translations: [Syncope and collapse] 11-22-2020 Episodic Viral infection (4 sources) Disease caused by 2019-nCoV; Translations: [COVID-19] 11-22-2020 Episodic Results Test Name Value Interpretation Reference Range Facility Absolute lymphocyte countOrd ered By: Karen Ascencio on 07-24-2023 Lymphocytes Auto (Unsp spec) [#/Vol] 1.56 10*3/uL 0.83-4.51 [facility] Automated lymphocyte count a s percentage of total leukocytesOrdered By: Karen Ascencio on 07-24-2023 Lymphocytes/100 WBC Auto (Unsp spec) 28.9 % 19-41 [facility] Basophil percentageOrdered B y: Karen Ascencio on 07-24-2023 Basophils/100 WBC (Bld) 0.7 % 0-1 [facility] Bilirubin [Mass/Vol] 0.70 mg/dL 0.20-1.00 [facility] Comment on above: For patients on eltr ombopag therapy, use of Dimension [place] TBIL is not recommended. Chloride [Moles/Vol] 107 mmol/L 98-107 [facility] Cholesterol [Mass/Vol] 137 mg/dL <200 [facility] Comment on above: <200 mg/dL Desirable 200-240 mg/dL Borderline >240 mg/dL High Risk Eosinophils/100 WBC (Bld) 2.6 % 0-5 [facility] Glucose [Mass/Vol] 88 mg/dL 74-106 [facility] Hemoglobin (Bld) [Mass/Vol] 15.2 g/dL 13.0-16.5 [facility] Monocytes/100 WBC (Bld) 10.2 % 0-10 [facility] Neutrophils (Bld) [#/Vol] 3.1 10*3/uL 2.0-7.7 [facility] Neutrophils/100 WBC (Bld) 57.2 % 47-70 [facility] Potassium [Moles/Vol] 4.0 mmol/L 3.5-5.1 [facility] Protein [Mass/Vol] 6.9 g/dL 6.4-8.2 [facility] Sodium [Moles/Vol] 140 mmol/L 136-145 [facility] Triglyceride [Mass/Vol] 93 mg/dL <199 [facility] Comment on above: The drugs N-Acetylcy steine and Metamizole may falsely depress this assay.Serum Triglycerides Reference Interval Normal <150 mg/dL Borderline high 150 - 199 mg/dL High 200 - 499 mg/dL Very High > or = 500 mg/dL WBC (Bld) [#/Vol] 5.4 10*3/uL 4.4-11.0 [facility] CBC W/Diff, Automatedon 05-0 -2023 Absolute Lymph 1.56 X10 3/uL Normal 0.83-4.51 [facility] Comment on above: Order Comment: Order Date: 07/21/23 Order Info: [id number] - CBCD Performed By: #### L [id number], L100.0100 #### [facility] [address] [place], [address] Absolute Neut 3.1 X10 3/uL Normal 2.0-7.7 [facility] Comment on above: Order Comment: Order Date: 07/21/23 Order Info: [id number] - CBCD Performed By: #### L [id number], L100.0100 #### [facility] [address] [place], [address] Basophils/100 WBC (Bld) 0.7 % Normal 0-1 [facility] Comment on above: Order Comment: Order Date: 07/21/23 Order Info: [id number] - CBCD Performed By: #### L [id number], L100.0100 #### [facility] [address] [place], [address] Eosinophils/100 WBC (Bld) 2.6 % Normal 0-5 [facility] Comment on above: Order Comment: Order Date: 07/21/23 Order Info: 018- - CBCD Performed By: #### L [id number], L100.0100 #### [facility] [address] [place], [address] Erythrocyte distribution width (RBC) [Ratio] 12.9 % Normal 11.6-14.6 [facility] Comment on above: Order Comment: Order Date: 07/21/23 Order Info: 018- - CBCD Performed By: #### L [id number], L100.0100 #### [facility] [address] [place], [address] Hematocrit (Bld) [Volume fraction] 46.3 % Normal 40-54 [facility] Comment on above: Order Comment: Order Date: 07/21/23 Order Info: 018- - CBCD Performed By: #### L [id number], L100.0100 #### [facility] [address] [place], [address] Hemoglobin (Bld) [Mass/Vol] 15.2 g/dL Normal 13.0-16.5 [facility] Comment on above: Order Comment: Order Date: 07/21/23 Order Info: [id number] - CBCD Performed By: #### L [id number], L100.0100 #### [facility] [address] [place], [address] IG% 0.400 Normal 0.0-0.9 [facility] Comment on above: Order Comment: Order Date: 07/21/23 Order Info: [id number]- - CBCD Result Comment: IG% - Immature Granulocytes (promyelocytes, myelocytes and metamyelocytes) > 1% indicates that a LEFT SHIFT is Present. Performed By: #### L 500.4050, L100.0100 #### [facility] [address] [place], [address] Lymphocytes/100 WBC (Bld) 28.9 % Normal 19-41 [facility] Comment on above: Order Comment: Order Date: 07/21/23 Order Info: 0184- - CBCD Performed By: #### L 500.4050, L100.0100 #### [facility] [address] [place], [address] MCH (RBC) [Entitic mass] 30.9 pg Normal 27.0-32.0 [facility] Comment on above: Order Comment: Order Date: 07/21/23 Order Info: 0184- - CBCD Performed By: #### L 500.4050, L100.0100 #### [facility] [address] [place], [address] MCHC (RBC) [Mass/Vol] 32.8 g/dL Normal 32-36 [facility] Comment on above: Order Comment: Order Date: 07/21/23 Order Info: 0184- - CBCD Performed By: #### L 500.4050, L100.0100 #### [facility] [address] [place], [address] MCV (RBC) [Entitic vol] 94.1 fL High 80-94 [facility] Comment on above: Order Comment: Order Date: 07/21/23 Order Info: 0184- - CBCD Performed By: #### L 500.4050, L100.0100 #### [facility] [address] [place], [address] Monocytes/100 WBC (Bld) 10.2 % High 0-10 [facility] Comment on above: Order Comment: Order Date: 07/21/23 Order Info: [id number] - CBCD Performed By: #### L 500.4050, L100.0100 #### [facility] [address] [place], [address] Neutrophils/100 WBC (Bld) 57.2 % Normal 47-70 [facility] Comment on above: Order Comment: Order Date: 07/21/23 Order Info: 0184-1 - CBCD Performed By: #### L 500.4050, L100.0100 #### [facility] [address] [place], [address] Nucleated RBC (Bld) [#/Vol] 0 10*3/uL Normal 0-5 [facility] Comment on above: Order Comment: Order Date: 07/21/23 Order Info: 0184-1 - CBCD Performed By: #### L 500.4050, L100.0100 #### [facility] [address] [place], [address] Platelet mean volume (Bld) [Entitic vol] 10.0 fL Normal 6.2-12.0 [facility] Comment on above: Order Comment: Order Date: 07/21/23 Order Info: 0184-1 - CBCD Performed By: #### L 500.4050, L100.0100 #### [facility] [address] [place], [address] Platelets (Bld) [#/Vol] 304 10*3/uL Normal 150-450 [facility] Comment on above: Order Comment: Order Date: 07/21/23 Order Info: 0184-1 - CBCD Performed By: #### L 500.4050, L100.0100 #### [facility] [address] [place], [address] RBC (Bld) [#/Vol] 4.92 10*6/uL Normal 4.6-6.2 [facility] Comment on above: Order Comment: Order Date: 07/21/23 Order Info: [id number] - CBCD Performed By: #### L 500.4050, L100.0100 #### [facility] [address] [place], [address] RDW SD 44.8 fl High 35.1-43.9 [facility] Comment on above: Order Comment: Order Date: 07/21/23 Order Info: [id number]- - CBCD Performed By: #### L 500.4050, L100.0100 #### [facility] [address] [place], [address] WBC (Bld) [#/Vol] 5.4 10*3/uL Normal 4.4-11.0 [facility] Comment on above: Order Comment: Order Date: 07/21/23 Order Info: [id number]- - CBCD Performed By: #### L 500.4050, L100.0100 #### [facility] [address] [place], [address] Comprehensive Metabolic Prof ilon 07-24-2023 Albumin [Mass/Vol] 3.7 g/dL Normal 3.2-5.0 [facility] Comment on above: Order Comment: Order Date: 07/21/23 Order Info: [id number] - CMP Order Info: [id number] - LIPID Performed By: #### L 500.4050, L100.0100 #### [facility] [address] [place], [address] Albumin/Globulin [Mass ratio] 1.2 {ratio} Normal 0.9-2.4 [facility] Comment on above: Order Comment: Order Date: 07/21/23 Order Info: [id number] - CMP Order Info: [id number] - LIPID Performed By: #### L 500.4050, L100.0100 #### [facility] [address] [place], [address] ALK P 81 U/L Normal 45-117 [facility] Comment on above: Order Comment: Order Date: 07/21/23 Order Info: 0786-1 - CMP Order Info: [id number] - LIPID Performed By: #### L 500.4050, L100.0100 #### [facility] [address] [place], [address] ALT [Catalytic activity/Vol] 31 U/L Normal 16-61 [facility] Comment on above: Order Comment: Order Date: 07/21/23 Order Info: [id number] - CMP Order Info: [id number] - LIPID Performed By: #### L 500.4050, L100.0100 #### [facility] [address] [place], [address] AST [Catalytic activity/Vol] 22 U/L Normal 15-37 [facility] Comment on above: Order Comment: Order Date: 07/21/23 Order Info: 0786- - CMP Order Info: [id number] - LIPID Performed By: #### L 500.4050, L100.0100 #### [facility] [address] [place], [address] Bilirubin [Mass/Vol] 0.70 mg/dL Normal 0.20-1.00 [facility] Comment on above: Order Comment: Order Date: 07/21/23 Order Info: 0786- - CMP Order Info: [id number] - LIPID Result Comment: For patients on eltrombopag therapy, use of Dimension [place] TBIL is not recommended. Performed By: #### L 500.4050, L100.0100 #### [facility] [address] [place], [address] BUN/CRE 12.6 RATIO Normal 10-20 [facility] Comment on above: Order Comment: Order Date: 07/21/23 Order Info: [id number] - CMP Order Info: [id number] - LIPID Performed By: #### L 500.4050, L100.0100 #### [facility] [address] [place], [address] CA,Total 8.9 mg/dL Normal 8.5-10.1 [facility] Comment on above: Order Comment: Order Date: 07/21/23 Order Info: 0786-1 - CMP Order Info: [id number] - LIPID Performed By: #### L 500.4050, L100.0100 #### [facility] [address] [place], [address] Chloride [Moles/Vol] 107 mmol/L Normal 98-107 [facility] Comment on above: Order Comment: Order Date: 07/21/23 Order Info: 0786- - CMP Order Info: [id number] - LIPID Performed By: #### L 500.4050, L100.0100 #### [facility] [address] [place], [address] CO2 [Moles/Vol] 29.0 mmol/L Normal 21.0-32.0 [facility] Comment on above: Order Comment: Order Date: 07/21/23 Order Info: 0786- - CMP Order Info: [id number] - LIPID Performed By: #### L 500.4050, L100.0100 #### [facility] [address] [place], [address] Creatinine [Mass/Vol] 1.03 mg/dL Normal 0.70-1.30 [facility] Comment on above: Order Comment: Order Date: 07/21/23 Order Info: [id number] - CMP Order Info: [id number] - LIPID Result Comment: The validity of the calculated GFR GFRAA in patients over 70 years has not been determined. Clinical correlation is essential. Performed By: #### L 500.4050, L100.0100 #### [facility] [address] [place], [address] EST GFR - AA 94 mL/min Normal >60 [facility] Comment on above: Order Comment: Order Date: 07/21/23 Order Info: 0786-1 - CMP Order Info: [id number] - LIPID Result Comment: Afri can [place] GFR Calc Performed By: #### L 500.4050, L100.0100 #### [facility] [address] [place], [address] GAP 4 Low 5-15 [facility] Comment on above: Order Comment: Order Date: 07/21/23 Order Info: [id number] - CMP Order Info: - LIPID Performed By: #### L 500.4050, L100.0100 #### [facility] [address] [place], [address] GFR/1.73 sq M.predicted among non-blacks MDRD (S/P/Bld) [Vol rate/Area] 78 mL/min/{1.73_m2} Normal >60 [facility] Comment on above: Order Comment: Order Date: 07/21/23 Order Info: [id number] - CMP Order Info: [id number] - LIPID Result Comment: Non- GFR Calc Performed By: #### L 500.4050, L100.0100 #### [facility] [address] [place], [address] Globulin (S) [Mass/Vol] 3.2 g/dL Normal 2.2-4.2 [facility] Comment on above: Order Comment: Order Date: 07/21/23 Order Info: [id number] - CMP Order Info: [id number] - LIPID Performed By: #### L 500.4050, L100.0100 #### [facility] [address] [place], [address] Glucose [Mass/Vol] 88 mg/dL Normal 74-106 [facility] Comment on above: Order Comment: Order Date: 07/21/23 Order Info: 07 - CMP Order Info: [id number] - LIPID Performed By: #### L 500.4050, L100.0100 #### [facility] [address] [place], [address] Potassium [Moles/Vol] 4.0 mmol/L Normal 3.5-5.1 [facility] Comment on above: Order Comment: Order Date: 07/21/23 Order Info: [id number] - CMP Order Info: [id number] - LIPID Performed By: #### L 500.4050, L100.0100 #### [facility] [address] [place], [address] Sodium [Moles/Vol] 140 mmol/L Normal 136-145 [facility] Comment on above: Order Comment: Order Date: 07/21/23 Order Info: 0786- - CMP Order Info: [id number] - LIPID Performed By: #### L 500.4050, L100.0100 #### [facility] [address] [place], [address] T PROT 6.9 g/dL Normal 6.4-8.2 [facility] Comment on above: Order Comment: Order Date: 07/21/23 Order Info: [id number] - CMP Order Info: [id number] - LIPID Performed By: #### L 500.4050, L100.0100 #### [facility] [address] [place], [address] Urea nitrogen [Mass/Vol] 13 mg/dL Normal 7-18 [facility] Comment on above: Order Comment: Order Date: 07/21/23 Order Info: [id number] - CMP Order Info: [id number] - LIPID Performed By: #### L 500.4050, L100.0100 #### [facility] [address] [place], [address] Determination of erythrocyte mean corpuscular volume (MCV)Ordered By: Karen Ascencio on 07-24-2023 MCV (RBC) [Entitic vol] 94.1 fL 80-94 [facility] Erythrocyte distribution wid th ratioOrdered By: Karen Ascencio on 07-24-2023 Erythrocyte distribution width (RBC) [Ratio] 12.9 % 11.6-14.6 [facility] Erythrocyte distribution wid th standard deviationOrdered By: Karen Ascencio on 07-24-2023 Erythrocyte distribution width (RBC) [Entitic vol] 44.8 fL 35.1-43.9 [facility] Hematocrit Auto (Bld) [Volum e fraction]Ordered By: Karen Ascencio on 07-24-2023 Hematocrit (Bld) [Volume fraction] 46.3 % 40-54 [facility] Immature granulocytes/100 WB C Auto (Bld)Ordered By: Karen Ascencio on 07-24-2023 Immature granulocytes/100 WBC (Bld) 0.400 % 0.0-0.9 [facility] Comment on above: IG% - Immature Granu locytes (promyelocytes, myelocytes and metamyelocytes) > 1% indicates that a LEFT SHIFT is Present. Laboratory - Chemistry and C hemistry - challengeOrdered By: Karen Ascencio on 07-24-2023 Albumin/Globulin [Mass ratio] 1.2 {ratio} 0.9-2.4 [facility] ALP [Catalytic activity/Vol] 81 U/L 45-117 [facility] ALT [Catalytic activity/Vol] 31 U/L 16-61 [facility] Cholesterol in HDL [Mass/Vol] 42 mg/dL >40 [facility] Comment on above: The drugs N-Acetylcy steine and Metamizole may falsely depress this assay. Reference Range HDL <40 mg/dL Low HDL Cholesterol HDL >or= 60 mg/dL High HDL Cholesterol Cholesterol in LDL [Mass/Vol] 76 mg/dL 0-130 [facility] CO2 [Moles/Vol] 29.0 mmol/L 21.0-32.0 [facility] Globulin (S) [Mass/Vol] 3.2 g/dL 2.2-4.2 [facility] Urea nitrogen/Creatinine [Mass ratio] 12.6 mg/mg 10-20 [facility] - Hematology and Cell countsOrdered By: Karen Ascencio on 07-24-2023 MCH (RBC) [Entitic mass] 30.9 pg 27.0-32.0 [facility] MCHC (RBC) [Mass/Vol] 32.8 g/dL 32-36 [facility] Nucleated RBC/100 WBC (Bld) [Ratio] 0 % 0-5 [facility] Platelet mean volume (Bld) [Entitic vol] 10.0 fL 6.2-12.0 [facility] Platelets (Bld) [#/Vol] 304 10*3/uL 150-450 [facility] Lipid Profileon 07-24-2023 Cholesterol [Mass/Vol] 137 mg/dL Normal 200 [facility] Comment on above: Order Comment: Order Date: 07/21/23 Order Info: [id number]- - CMP Order Info: [id number] - LIPID Result Comment: <200 mg/dL Desirable 200-240 mg/dL Borderline >240 mg/dL High Risk Performed By: #### L 500.4100 #### [facility] [address] [place], [address] Cholesterol in HDL [Mass/Vol] 42 mg/dL Normal [facility] Comment on above: Order Comment: Order Date: 07/21/23 Order Info: 0786 - CMP Order Info: [id number] - LIPID Result Comment: The drugs N-Acetylcysteine and Metamizole may falsely depress this assay. Reference Range HDL <40 mg/dL Low HDL Cholesterol HDL >or= 60 mg/dL High HDL Cholesterol Performed By: #### L 500.4100 #### [facility] [address] [place], [address] Cholesterol in LDL [Mass/Vol] 76 mg/dL Normal 0-130 [facility] Comment on above: Order Comment: Order Date: 07/21/23 Order Info: 0786- - CMP Order Info: [id number] - LIPID Performed By: #### L 500.4100 #### [facility] [address] [place], [address] Cholesterol in VLDL [Mass/Vol] 19 mg/dL Normal 5-40 [facility] Comment on above: Order Comment: Order Date: 07/21/23 Order Info: 0786- - CMP Order Info: [id number] - LIPID Performed By: #### L 500.4100 #### [facility] [address] [place], [address] Triglyceride [Mass/Vol] 93 mg/dL Normal [facility] Comment on above: Order Comment: Order Date: 07/21/23 Order Info: [id number] - CMP Order Info: [id number] - LIPID Result Comment: The drugs N-Acetylcysteine and Metamizole may falsely depress this assay. Serum Triglycerides Reference Interval Normal <150 mg/dL Borderline high 150 - 199 mg/dL High 200 - 499 mg/dL Very High > or = 500 mg/dL Performed By: #### L 500.4100 #### [facility] [address] [place], [place], [address] No Panel InformationOrdered By: Karen Ascencio on 07-24-2023 Estimated GFR (MDRD) Amer 94 mL/min >60 [facility] Comment on above: GFR Calc Estimated GFR (MDRD) Non-Af Amer 78 mL/min >60 [facility] Comment on above: Non- GFR Calc VLDL Cholesterol 19 mg/dL 5-40 [facility] RBC Auto (Bld) [#/Vol]Ordere d By: Karen Ascencio on 07-24-2023 RBC (Bld) [#/Vol] 4.92 10*6/uL 4.6-6.2 [facility] Serum or plasma calcium berto urement (mass/volume)Ordered By: Karen Ascencio on 07-24-2023 Calcium [Mass/Vol] 8.9 mg/dL 8.5-10.1 [facility] Serum or plasma creatinine m easurement (mass/volume)Ordered By: Karen Ascencio on 07-24-2023 Creatinine [Mass/Vol] 1.03 mg/dL 0.70-1.30 [facility] Comment on above: The validity of the calculated GFR & GFRAA in patients over 70 years has not been determined. Clinical correlation is essential. Serum or plasma urea nitroge n measurement (mass/volume)Ordered By: Karen Ascencio on 07-24-2023 Urea nitrogen [Mass/Vol] 13 mg/dL 7-18 [facility] Thin prep Papanicolaou smear with manual screeningOrdered By: Karen Ascencio on 07-24-2023 Thin prep Papanicolaou smear with manual screening 3.7 g/dL 3.2-5.0 [facility] Thin prep Papanicolaou smear with manual screening 22 U/L 15-37 [facility] Thin prep Papanicolaou smear with manual screening 4 5-15 [facility] Absolute lymphocyte countOrd ered By: Dr. Ascencio on 09-03-2022 Lymphocytes Auto (Unsp spec) [#/Vol] 1.68 10*3/uL 0.83-4.51 [facility] Basophil percentageOrdered B y: Karen Ascencio on 09-03-2022 Basophil percentage Not Reportable [facility] Basophil percentageOrdered B y: Dr. Ascencio on 09-03-2022 Basophils/100 WBC (Bld) 1.2 % 0-1 [facility] Bilirubin [Mass/Vol] 0.70 mg/dL 0.20-1.00 [facility] Comment on above: For patients on eltr ombopag therapy, use of Dimension [place] TBIL is not recommended. Chloride [Moles/Vol] 109 mmol/L 98-107 [facility] Cholesterol [Mass/Vol] 160 mg/dL <200 [facility] Comment on above: <200 mg/dL Desirable 200-240 mg/dL Borderline >240 mg/dL High Risk Eosinophils/100 WBC (Bld) 1.5 % 0-5 [facility] Glucose [Mass/Vol] 88 mg/dL 74-106 [facility] Neutrophils (Bld) [#/Vol] 3.7 10*3/uL 2.0-7.7 [facility] Neutrophils/100 WBC (Bld) 60.7 % 47-70 [facility] Potassium [Moles/Vol] 4.0 mmol/L 3.5-5.1 [facility] Protein [Mass/Vol] 7.0 g/dL 6.4-8.2 [facility] Sodium [Moles/Vol] 140 mmol/L 136-145 [facility] Triglyceride [Mass/Vol] 162 mg/dL <199 [facility] Comment on above: The drugs N-Acetylcy steine and Metamizole may falsely depress this assay.Serum Triglycerides Reference Interval Normal <150 mg/dL Borderline high 150 - 199 mg/dL High 200 - 499 mg/dL Very High > or = 500 mg/dL WBC (Bld) [#/Vol] 6.0 10*3/uL 4.4-11.0 [facility] Blood erythrocytes count (nu mber/volume)Ordered By: Dr. Asecncio on 09-03-2022 RBC (Bld) [#/Vol] 5.07 10*6/uL 4.6-6.2 [facility] Blood hemoglobin measurement (mass/volume)Ordered By: Dr. Ascencio on 09-03-2022 Hemoglobin (Bld) [Mass/Vol] 15.6 g/dL 13.0-16.5 [facility] Blood lymphocytes/100 leukoc ytesOrdered By: Dr. Ascencio on 09-03-2022 Lymphocytes/100 WBC (Bld) 27.8 % 19-41 [facility] Blood monocytes/100 leukocyt esOrdered By: Dr. Ascencio on 09-03-2022 Monocytes/100 WBC (Bld) 8.3 % 0-10 [facility] Blood platelet mean volumeOr dered By: Dr. Ascencio on 09-03-2022 Platelet mean volume (Bld) [Entitic vol] 10.4 fL 6.2-12.0 [facility] Determination of erythrocyte mean corpuscular volume (MCV)Ordered By: Dr. Ascencio on 09-03-2022 MCV (RBC) [Entitic vol] 95.1 fL 80-94 [facility] Erythrocyte sedimentation ra teOrdered By: Dr. Ascencio on 09-03-2022 ESR (Bld) [Velocity] 10 mm/h 0-20 [facility] Hematocrit Auto (Bld) [Volum e fraction]Ordered By: Dr. Ascencio on 09-03-2022 Hematocrit (Bld) [Volume fraction] 48.2 % 40-54 [facility] Laboratory - Chemistry and C hemistry - challengeOrdered By: Dr. Ascencio on 09-03-2022 Albumin [Mass/Vol] 3.8 g/dL 2.9-4.4 [facility] ALP [Catalytic activity/Vol] 90 U/L 45-117 [facility] ALT [Catalytic activity/Vol] 33 U/L 16-61 [facility] CO2 [Moles/Vol] 23.0 mmol/L 21.0-32.0 [facility] Cobalamin (Vitamin B12) [Mass/Vol] 378 pg/mL 211-911 [facility] Globulin (S) [Mass/Vol] 3.3 g/dL 2.2-4.2 [facility] Urea nitrogen/Creatinine [Mass ratio] 12.7 mg/mg 10-20 [facility] Laboratory - Hematology and Cell countsOrdered By: Dr. Ascencio on 09-03-2022 Erythrocyte distribution width (RBC) [Entitic vol] 44.7 fL 35.1-43.9 [facility] Erythrocyte distribution width (RBC) [Ratio] 12.8 % 11.6-14.6 [facility] Immature granulocytes/100 WBC (Bld) 0.500 % 0.0-0.9 [facility] Comment on above: IG% - Immature Granu locytes (promyelocytes, myelocytes and metamyelocytes) > 1% indicates that a LEFT SHIFT is Present. MCH (RBC) [Entitic mass] 30.8 pg 27.0-32.0 [facility] Nucleated RBC/100 WBC (Bld) [Ratio] 0 % 0-5 [facility] MCHC Auto (RBC) [Mass/Vol]Or dered By: Dr. Ascencio on 09-03-2022 MCHC (RBC) [Mass/Vol] 32.4 g/dL 32-36 [facility] No Panel InformationOrdered By: Dr. Ascencio on 09-03-2022 Addendum Document Comment . [facility] Comment on above: The SPE pattern appe ars unremarkable. Evidence ofmonoclonal protein is not apparent.Performed at: [place] [facility] [address] [id number] Director: Michael Tian PhD, Phone: [phone] Uhhsg-2-Mrasdtpqp 0.2 g/dL 0.0-0.4 [facility] Ksask-2-Ujfipjzur 0.7 g/dL 0.4-1.0 [facility] Anti-Nuclear Antibody Screen Negative Negative [facility] Comment on above: Performed at: [place] [facility] [address] [id number] Director: Michael Tian PhD, Phone: [phone] Estimated GFR (MDRD) Amer 115 mL/min >60 [facility] Comment on above: GFR Calc Estimated GFR (MDRD) Non-Af Amer 95 mL/min >60 [facility] Comment on above: Non- GFR Calc Gamma Globulins 0.6 g/dL 0.4-1.8 [facility] Parathyroid Hormone (Intact) 54.1 pg/mL 18.4-80.1 [facility] No Panel InformationOrdered By: Karen Ascencio on 09-03-2022 Centromere B Antibody Not Reportable [facility] BUSINESS ADMINISTRATION PROGRAM CHAIR Antibody Not Reportable [facility] Platelets bldOrdered By: Dr. Ascencio on 09-03-2022 Platelets (Bld) [#/Vol] 343 10*3/uL 150-450 [facility] Protein Fractions Elph [Inte rp]Ordered By: Dr. Ascencio on 09-03-2022 Protein Fractions [Interp] Comment . [facility] Comment on above: Protein electrophore sis scan will follow via computer,mail, or cake maker delivery. Serum DNA double strand anti body assay (units/volume)Ordered By: Karen Ascencio on 09-03-2022 DNA double strand Ab Qn (S) Not Reportable [facility] Serum Va-1 antibody assay (u nits/volume)Ordered By: Karen Ascencio on 09-03-2022 Va-1 extractable nuclear Ab Qn (S) Not Reportable [facility] Serum Scl-70 extractable nuc lear antibody assay (units/volume)Ordered By: Karen Ascencio on 09-03-2022 SCL-70 extractable nuclear Ab Qn (S) Not Reportable [facility] Serum Ascencio extractable nucl ear antibody detectionOrdered By: Karen Ascencio on 09-03-2022 Sonu extractable nuclear Ab Ql (S) Not Reportable [facility] Serum albumin to globulin ra lauren by protein electrophoresisOrdered By: Dr. Ascencio on 09-03-2022 Albumin/Globulin Elph [Mass ratio] 1.5 0.7-1.7 [facility] Serum globulin measurement ( mass/volume)Ordered By: Dr. Ascencio on 09-03-2022 Globulin (S) [Mass/Vol] 2.6 g/dL 2.2-3.9 [facility] Serum or plasma albumin berto urement (mass/volume)Ordered By: Dr. Ascencio on 09-03-2022 Albumin [Mass/Vol] 3.7 g/dL 3.2-5.0 [facility] Serum or plasma albumin/glob ulin mass ratioOrdered By: Dr. Ascencio on 09-03-2022 Albumin/Globulin [Mass ratio] 1.1 {ratio} 0.9-2.4 [facility] Serum or plasma beta globuli n measurement by electrophoresis (mass/volume)Ordered By: Dr. Ascencio on 09-03-2022 Beta globulin Elph [Mass/Vol] 1.0 g/dL 0.7-1.3 [facility] Serum or plasma calcium berto urement (mass/volume)Ordered By: Dr. Ascencio on 09-03-2022 Calcium [Mass/Vol] 9.2 mg/dL 8.5-10.1 [facility] Serum or plasma cholesterol in HDL measurement (mass/volume)Ordered By: Dr. Ascencio on 09-03-2022 Cholesterol in HDL [Mass/Vol] 41 mg/dL >40 [facility] Comment on above: The drugs N-Acetylcy steine and Metamizole may falsely depress this assay. Reference Range HDL <40 mg/dL Low HDL Cholesterol HDL >or= 60 mg/dL High HDL Cholesterol Serum or plasma cholesterol in VLDL measurement (mass/volume)Ordered By: Dr. Ascencio on 09-03-2022 Cholesterol in VLDL [Mass/Vol] 32 mg/dL 5-40 [facility] Serum or plasma creatinine m easurement (mass/volume)Ordered By: Dr. Ascencio on 09-03-2022 Creatinine [Mass/Vol] 0.86 mg/dL 0.70-1.30 [facility] Comment on above: The validity of the calculated GFR & GFRAA in patients over 70 years has not been determined. Clinical correlation is essential. Serum or plasma ferritin yousif surement (mass/volume)Ordered By: Dr. Ascencio on 09-03-2022 Ferritin [Mass/Vol] 83 ng/mL 26-388 [facility] Serum or plasma folate measu rement (mass/volume)Ordered By: Dr. Ascencio on 09-03-2022 Folate [Mass/Vol] 19.50 ng/mL 3.1-55.4 [facility] Serum or plasma low density lipoprotein (LDL) cholesterol measurement (mass/volume)Ordered By: Dr. Ascencio on 09-03-2022 Cholesterol in LDL [Mass/Vol] 87 mg/dL 0-130 [facility] Serum or plasma urea nitroge n measurement (mass/volume)Ordered By: Dr. Ascencio on 09-03-2022 Urea nitrogen [Mass/Vol] 11 mg/dL 7-18 [facility] Thin prep Papanicolaou smear with manual screeningOrdered By: Dr. Ascencio on 09-03-2022 Thin prep Papanicolaou smear with manual screening 21 U/L 15-37 [facility] Thin prep Papanicolaou smear with manual screening 8 5-15 [facility] Thin prep Papanicolaou smear with manual screeningOrdered By: Karen Ascencio on 09-03-2022 Thin prep Papanicolaou smear with manual screening See comment [facility] Comment on above: Result: Not Observed Total protein bloodOrdered B y: Dr. Ascencio on 09-03-2022 Protein [Mass/Vol] 6.4 g/dL 6.0-8.5 [facility] Absolute lymphocyte counton 03-04-2022 Lymphocytes Auto (Unsp spec) [#/Vol] 1.49 10*3/uL 0.83-4.51 [facility] Work Phone: Basophil percentageon 2021 Basophils/100 WBC (Bld) 0.8 % 0-1 [facility] Work Phone: Bilirubin [Mass/Vol] 0.40 mg/dL 0.20-1.00 [facility] Work Phone: Comment on above: For patients on eltr ombopag therapy, use of [place] TBIL is not recommended. Chloride [Moles/Vol] 107 mmol/L 98-107 [facility] Work Phone: Cholesterol [Mass/Vol] 147 mg/dL <200 [facility] Work Phone: Comment on above: <200 mg/dL Desirable 200-240 mg/dL Borderline >240 mg/dL High Risk Eosinophils/100 WBC (Bld) 1.2 % 0-5 [facility] Work Phone: Glucose [Mass/Vol] 87 mg/dL 74-106 [facility] Work Phone: Neutrophils (Bld) [#/Vol] 4.4 10*3/uL 2.0-7.7 [facility] Work Phone: Neutrophils/100 WBC (Bld) 66.9 % 47-70 [facility] Work Phone: Potassium [Moles/Vol] 4.5 mmol/L 3.5-5.1 [facility] Work Phone: Protein [Mass/Vol] 5.8 g/dL 6.4-8.2 [facility] Work Phone: Sodium [Moles/Vol] 142 mmol/L 136-145 [facility] Work Phone: Triglyceride [Mass/Vol] 174 mg/dL <199 [facility] Work Phone: Comment on above: The drugs N-Acetylcy steine and Metamizole may falsely depress this assay.Serum Triglycerides Reference Interval Normal <150 mg/dL Borderline high 150 - 199 mg/dL High 200 - 499 mg/dL Very High > or = 500 mg/dL WBC (Bld) [#/Vol] 6.5 10*3/uL 4.4-11.0 [facility] Work Phone: Blood erythrocytes count (nu mber/volume)on 03-04-2022 RBC (Bld) [#/Vol] 5.24 10*6/uL 4.6-6.2 [facility] Work Phone: Blood hemoglobin measurement (mass/volume)on 03-04-2022 Hemoglobin (Bld) [Mass/Vol] 16.7 g/dL 13.0-16.5 [facility] Work Phone: Blood lymphocytes/100 leukoc yteson 03-04-2022 Lymphocytes/100 WBC (Bld) 22.8 % 19-41 [facility] Work Phone: Blood monocytes/100 leukocyt eson 03-04-2022 Monocytes/100 WBC (Bld) 7.8 % 0-10 [facility] Work Phone: Blood platelet mean volumeon 03-04-2022 Platelet mean volume (Bld) [Entitic vol] 10.0 fL 6.2-12.0 [facility] Work Phone: Determination of erythrocyte mean corpuscular volume (MCV)on 03-04-2022 MCV (RBC) [Entitic vol] 95.2 fL 80-94 [facility] Work Phone: Hematocrit Auto (Bld) [Volum e fraction]on 03-04-2022 Hematocrit (Bld) [Volume fraction] 49.9 % 40-54 [facility] Work Phone: Laboratory - Chemistry and C hemistry - challengeon 03-04-2022 ALP [Catalytic activity/Vol] 59 U/L 45-117 [facility] Work Phone: ALT [Catalytic activity/Vol] 31 U/L 16-61 [facility] Work Phone: [phone] CO2 [Moles/Vol] 27.0 mmol/L 21.0-32.0 [facility] Work Phone: Globulin (S) [Mass/Vol] 2.4 g/dL 2.2-4.2 [facility] Work Phone: Urea nitrogen/Creatinine [Mass ratio] 15.6 mg/mg 10-20 [facility] Work Phone: Laboratory - Hematology and Cell countson 03-04-2022 Erythrocyte distribution width (RBC) [Entitic vol] 45.9 fL 35.1-43.9 [facility] Work Phone: [phone] Erythrocyte distribution width (RBC) [Ratio] 13.0 % 11.6-14.6 [facility] Work Phone: Immature granulocytes/100 WBC (Bld) 0.500 % 0.0-0.9 [facility] Work Phone: Comment on above: IG% - Immature Granu locytes (promyelocytes, myelocytes and metamyelocytes) > 1% indicates that a LEFT SHIFT is Present. MCH (RBC) [Entitic mass] 31.9 pg 27.0-32.0 [facility] Work Phone: [phone] Nucleated RBC/100 WBC (Bld) [Ratio] 0 % 0-5 [facility] Work Phone: [phone] MCHC Auto (RBC) [Mass/Vol]on 03-04-2022 MCHC (RBC) [Mass/Vol] 33.5 g/dL 32-36 [facility] Work Phone: [phone] No Panel Informationon 03-04 Estimated GFR (MDRD) Amer 111 mL/min >60 [facility] Work Phone: [phone] Comment on above: GFR Calc Estimated GFR (MDRD) Non-Af Amer 92 mL/min >60 [facility] Work Phone: [phone] Comment on above: Non- GFR Calc Prostate Specific Antigen Screen 0.88 ng/mL 0.00-4.00 [facility] Work Phone: Comment on above: This test was perfor med using the TPSA assay method for the[employer] ([employer]) chemistry system. Values obtained with differentassay methods cannot be used interchangably.When changing PSA assays in the course of monitoring apatient, additional sequential testing should be carriedout to confirm baseline values. Platelets bldon 03-04-2022 Platelets (Bld) [#/Vol] 325 10*3/uL 150-450 [facility] Work Phone: [phone] Serum or plasma albumin berto urement (mass/volume)on 03-04-2022 Albumin [Mass/Vol] 3.4 g/dL 3.2-5.0 [facility] Work Phone: [phone] Serum or plasma albumin/glob ulin mass ratioon 03-04-2022 Albumin/Globulin [Mass ratio] 1.4 {ratio} 0.9-2.4 [facility] Work Phone: [phone] Serum or plasma calcium berto urement (mass/volume)on 03-04-2022 Calcium [Mass/Vol] 9.1 mg/dL 8.5-10.1 [facility] Work Phone: Serum or plasma cholesterol in HDL measurement (mass/volume)on 03-04-2022 Cholesterol in HDL [Mass/Vol] 45 mg/dL >40 [facility] Work Phone: Comment on above: The drugs N-Acetylcy steine and Metamizole may falsely depress this assay. Reference Range HDL <40 mg/dL Low HDL Cholesterol HDL >or= 60 mg/dL High HDL Cholesterol Serum or plasma cholesterol in VLDL measurement (mass/volume)on 03-04-2022 Cholesterol in VLDL [Mass/Vol] 35 mg/dL 5-40 [facility] Work Phone: [phone] Serum or plasma creatinine m easurement (mass/volume)on 03-04-2022 Creatinine [Mass/Vol] 0.90 mg/dL 0.70-1.30 [facility] Work Phone: Comment on above: The validity of the calculated GFR & GFRAA in patients over 70 years has not been determined. Clinical correlation is essential. Serum or plasma ferritin yousif surement (mass/volume)on 03-04-2022 Ferritin [Mass/Vol] 75 ng/mL 26-388 [facility] Work Phone: Serum or plasma low density lipoprotein (LDL) cholesterol measurement (mass/volume)on 03-04-2022 Cholesterol in LDL [Mass/Vol] 67 mg/dL 0-130 [facility] Work Phone: [phone] Serum or plasma urea nitroge n measurement (mass/volume)on 03-04-2022 Urea nitrogen [Mass/Vol] 14 mg/dL 7-18 [facility] Work Phone: [phone] Thin prep Papanicolaou smear with manual screeningon 03-04-2022 Thin prep Papanicolaou smear with manual screening 16 U/L 15-37 [facility] Work Phone: [phone] Thin prep Papanicolaou smear with manual screening 8 5-15 [facility] Work Phone: [phone] CNOVon 11-20-2018 CNOV Office Visit ([facility]) ---- HETAL THOMAS ([id number]) 1960 M Date Time Provider Department 11/20/18 10:15 AM BELLE DURAN (ASHLEE) [facility] During your visit today, we recorded the following information about you: Temperature Pulse Respiration Blood pressure 97.5 degrees 80/minute 16/minute 120/80 Weight 79.4 kg Belle Duran APRN.CNP 11/20/2018 11:05 AM Signed CC Patient presents with: Diarrhea: x 5 days HPI Hetal Thomas is a 57 year old male who presents with diarrhea for 5 DAY(S) that is improving. Diarrhea is described as profuse watery occuring 12 times in the past 24 hours, last time 4 hours ago. Associated with abdominal cramping Denies: fever, chills, nausea, vomiting, no appetite, abdominal pain, bloating and constipation Denies blood in stool, recent foreign travel, recent camping and recent antibiotic usage Reports eating prepackaged meal of chicken and mashed potatoes from grocery store about 24 hours prior to onset Sick contacts: No New medications including OTC: No Pushing fluids, not eating much because it makes diarrhea worse. Treatments: nothing ROS General: denies dizziness, lightheadedness, weight loss, fever, chills, headaches, night sweats, syncope CV: denies rapid heart rate, edema Resp: denies SOB : denies dark/concentrated urine or decreased urine output PAST MEDICAL HISTORY Diagnosis Date - Insomnia - Iron deficiency anemia - Routine general medical examination at a health care facility PAST SURGICAL HISTORY Procedure Laterality Date - COLONOSCOPY W/BX 02/04/10 repeat due 2020 - VASECTOMY ALLERGIES Patient has no known allergies. MEDICATIONS MULTIVITAMIN ORAL Take by mouth. VITAMIN E ORAL Take by mouth. Ferrous Sulfate (FEOSOL) 325 mg (65 mg iron) tablet Take 1 tablet by mouth daily with breakfast. FAMILY HISTORY Problem Relation Age of Onset - Diabetes Mother - Diabetes Maternal Grandmother - Hypertension Mother - Cancer Mother Social History Tobacco Use - Smoking status: Never Smoker - Smokeless tobacco: Never Used Substance Use Topics - Alcohol use: No Comment: none since 1973 - Drug use: No PHYSICAL EXAM BP 120/80 Pulse 80 Temp 36.4 ?C (97.5 ?F) (Tympanic) Resp 16 Wt 79.4 kg (175 lb) BMI 24.75 kg/m? General Appearance: well appearing, in no acute distress, alert Skin: Skin color, texture, turgor normal for age; Eyes: conjunctiva pink and moist, no icterus, sclera white, non-injected Oropharynx: moist Lungs: lungs clear to auscultation. No wheezing, rhonchi, rales Heart: RRR without murmur, gallop, or rubs. No ectopy Abdomen: Abdomen soft, non-tender. Bowel sounds normal. No masses, organomegaly Ext: no edema in LE bilaterally, good distal pulses ASSESSMENT/PLAN: 1. Diarrhea, unspecified type - ICD9: 787.91, ICD10: R19.7 (primary diagnosis) Possibly infectious including viral gastroenteritis. No alarm symptoms or exam findings. Check stool for: - C. DIFFICILE PCR - ENTERIC BACTERIAL PANEL BY PCR Discussed at home care for diarrhea including diet Okay to start Imodium Follow-up if 2-3 days if no improvement or sooner if worsening of symptoms of dehydration 2. Abdominal cramping - ICD9: 789.00, ICD10: R10.9 As above - C. DIFFICILE PCR - ENTERIC BACTERIAL PANEL BY PCR Prescription instructions reviewed with patient as applicable. Potential red flag symptoms discussed with the patient. Reviewed appropriate action plan to take if red flag symptoms occur. Patient agreeable to treatment plan CARINE Acosta APRN.CNP 11/20/2018 10:37 AM Addendum Imodium over the counter, follow package directions Drink liquids frequently. Increase the amount to 2 to 3 liters or quarts daily as tolerated, or try sipping liquids in small amounts throughout the day. Choose diluted, pulpless fruit juices, broths, oral rehydration drinks or sodas (without caffeine). Chicken broth (without the fat), tea with honey, and sports drinks also are good choices. Instead of drinking liquids with your meals, drink liquids between meals. Try these low-fiber foods: potatoes, rice, noodles, ripe bananas, applesauce, smooth peanut butter, white bread, chicken or turkey without the skin, lean ground beef, fish, yogurt or cottage cheese. Avoid greasy, fatty, or fried foods; raw vegetables and fruits; strong spices, and whole-grain cereals and breads. Limit food or beverages with caffeine, such as chocolate, coffee, strong tea, and some sodas. If you have cramping with diarrhea, avoid gas-forming foods and beverages such as beans, cabbage, beer, and carbonated beverages. Diarrheal illness may result in temporary intolerance to lactose, (dairy) so avoid these foods if they are making diarrhea worse. Call your doctor or the emergency department if you have: persistent vomiting, bloody stools, dehydration, fainting, high fever, increased pain or pain in the abdomen on the right side. Viral gastroenteritis is hard to tell from food poisoning. If other members of your family also become ill, check with your doctor or the health department. Referring Provider: SELF [[id number]] Allergies As of Date: 11/20/2018 (No Known Allergies) Date Reviewed: 11/20/2018 Reviewed by: Sakshi Henriquez Senior Accountant Analyst - Fully Assessed Reason for Visit: Diarrhea [35] Cmt: x 5 days Primary Visit Diagnosis:Diarrhea, unspecified type [R19.7] Other Visit Diagnosis:Abdominal cramping [R10.9] Order(s):C. DIFFICILE PCR [SQCDPCR] Order #: [id number] ENTERIC BACTERIAL PANEL BY PCR [SQSTLPCR] Order #: [id number] FUTURE Prescriptions as of 11/20/2018 Sig: * MULTIVITAMIN ORAL Take by mouth. * VITAMIN E ORAL Take by mouth. FERROUS SULFATE 325 MG (65 MG* Take 1 tablet by mouth daily * Patient not taking: Reported on 11/20/2018 Problem List As Of Date 11/20/2018 Noted Resolved Left Groin Pain [R10.32] INVALID FOR* Anal Pain [K62.89] INVALID FOR* PTSD (post-traumatic stress disorder) [F43.10] INVALID FOR* More... 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 Increase the amount to 2 to 3 liters or quarts daily as tolerated, or try sipping liquids in small amounts throughout the day. Choose diluted, pulpless fruit juices, broths, oral rehydration drinks or sodas (without caffeine). Chicken broth (without the fat), tea with honey, and sports drinks also are good choices. Instead of drinking liquids with your meals, drink liquids between meals. Try these low-fiber foods: potatoes, rice, noodles, ripe bananas, applesauce, smooth peanut butter, white bread, chicken or turkey without the skin, lean ground beef, fish, yogurt or cottage cheese. Avoid greasy, fatty, or fried foods; raw vegetables and fruits; strong spices, and whole-grain cereals and breads. Limit food or beverages with caffeine, such as chocolate, coffee, strong tea, and some sodas. If you have cramping with diarrhea, avoid gas-forming foods and beverages such as beans, cabbage, beer, and carbonated beverages. Diarrheal illness may result in temporary intolerance to lactose, (dairy) so avoid these foods if they are making diarrhea worse. Call your doctor or the emergency department if you have: persistent vomiting, bloody stools, dehydration, fainting, high fever, increased pain or pain in the abdomen on the right side. Viral gastroenteritis is hard to tell from food poisoning. If other members of your family also become ill, check with your doctor or the health department. Encounter Status:Closed by BELLE DURAN CNP on 11/20/18 [facility] PROGRESSon 11-20-2018 PROGRESS HNO ID: [id number] Author: Belle Cline) Arnold Service: ? Author Type: Nurse Practitioner Type: Progress Notes Filed: 11/20/2018 11:05 AM Note Text: CC Patient presents with: Diarrhea: x 5 days HPI Hetal Thomas is a 57 year old male who presents with diarrhea for 5 DAY(S) that is improving. Diarrhea is described as profuse watery occuring 12 times in the past 24 hours, last time 4 hours ago. Associated with abdominal cramping Denies: fever, chills, nausea, vomiting, no appetite, abdominal pain, bloating and constipation Denies blood in stool, recent foreign travel, recent camping and recent antibiotic usage Reports eating prepackaged meal of chicken and mashed potatoes from grocery store about 24 hours prior to onset Sick contacts: No New medications including OTC: No Pushing fluids, not eating much because it makes diarrhea worse. Treatments: nothing ROS General: denies dizziness, lightheadedness, weight loss, fever, chills, headaches, night sweats, syncope CV: denies rapid heart rate, edema Resp: denies SOB : denies dark/concentrated urine or decreased urine output PAST MEDICAL HISTORY Diagnosis Date - Insomnia - Iron deficiency anemia - Routine general medical examination at a health care facility PAST SURGICAL HISTORY Procedure Laterality Date - COLONOSCOPY W/BX 02/04/10 repeat due 2020 - VASECTOMY ALLERGIES Patient has no known allergies. MEDICATIONS MULTIVITAMIN ORAL Take by mouth. VITAMIN E ORAL Take by mouth. Ferrous Sulfate (FEOSOL) 325 mg (65 mg iron) tablet Take 1 tablet by mouth daily with breakfast. FAMILY HISTORY Problem Relation Age of Onset - Diabetes Mother - Diabetes Maternal Grandmother - Hypertension Mother - Cancer Mother Social History Tobacco Use - Smoking status: Never Smoker - Smokeless tobacco: Never Used Substance Use Topics - Alcohol use: No Comment: none since 1973 - Drug use: No PHYSICAL EXAM BP 120/80 Pulse 80 Temp 36.4 ?C (97.5 ?F) (Tympanic) Resp 16 Wt 79.4 kg (175 lb) BMI 24.75 kg/m? General Appearance: well appearing, in no acute distress, alert Skin: Skin color, texture, turgor normal for age; Eyes: conjunctiva pink and moist, no icterus, sclera white, non-injected Oropharynx: moist Lungs: lungs clear to auscultation. No wheezing, rhonchi, rales Heart: RRR without murmur, gallop, or rubs. No ectopy Abdomen: Abdomen soft, non-tender. Bowel sounds normal. No masses, organomegaly Ext: no edema in LE bilaterally, good distal pulses ASSESSMENT/PLAN: 1. Diarrhea, unspecified type - ICD9: 787.91, ICD10: R19.7 (primary diagnosis) Possibly infectious including viral gastroenteritis. No alarm symptoms or exam findings. Check stool for: - C. DIFFICILE PCR - ENTERIC BACTERIAL PANEL BY PCR Discussed at home care for diarrhea including diet Okay to start Imodium Follow-up if 2-3 days if no improvement or sooner if worsening of symptoms of dehydration 2. Abdominal cramping - ICD9: 789.00, ICD10: R10.9 As above - C. DIFFICILE PCR - ENTERIC BACTERIAL PANEL BY PCR Prescription instructions reviewed with patient as applicable. Potential red flag symptoms discussed with the patient. Reviewed appropriate action plan to take if red flag symptoms occur. 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 Lion Ascencio Work Phone: [facility] Start: 10-22-2022 End: 10-22-[address] Karen Ascencio Work Phone: [facility] Work Phone: Start: 10-22-2022 End: 10-22-[address] Karen Ascencio Work Phone: [facility]Neurology Work Phone: Start: 09-03-2022 End: 09-03-2022 ambulatory [facility] Work Phone: Start: 09-03-2022 End: 09-03-2022 Patient encounter procedure [facility], [facility] Start: 03-04-2022 End: 03-04-2022 ambulatory [facility] Work Phone: Start: 03-04-2022 End: 03-04-2022 Patient encounter procedure [facility], [facility] Plan of Treatment Date Care Activity Detail Author Start: 11-22-2023 COVID-19 () COVID-19 () [facility] Start: 11-22-2023 FLU (#1) FLU (#1) [facility] Start: 1976 MenB (1 of 2 - MenB 2-Dose Series Bexsero) MenB (1 of 2 - MenB 2-Dose Series Bexsero) [facility] Start: 1973 Varicella (1 of 2 - 13+ 2-dose series) Varicella (1 of 2 - 13+ 2-dose series) [facility] Start: 12-12-1967 Tetanus Diphtheria and Pertussis Vaccines (1 - Tdap) Tetanus Diphtheria and Pertussis Vaccines (1 - Tdap) [facility] Start: 1961 MMR (1 of 1 - Standard series) MMR (1 of 1 - Standard series) [facility] Antibody to lupus La protein measurement [facility] Antibody to SS-A measurement [facility] Centromere protein B Ab [Units/volume] in Serum [facility] Chromatin Ab [Units/ volume] in Serum or Plasma [facility] DNA double strand Ab [Units/volume] in Serum [facility] Va-1 extractable nuc lear Ab [Units/volume] in Serum [facility] SCL-70 extractable n uclear Ab [Units/volume] in Serum by Immunoassay [facility] Serum protein electrophoresis [facility] Ascencio extractable nu clear Ab [Presence] in Serum [facility] Immunizations Immunization Date Immunization Notes Care Provider Ina rodriguez 12-23-2015 tetanus and diphther ia toxoids, adsorbed, preservative free, for adult use (2 Lf of tetanus toxoid and 2 Lf of diphtheria toxoid) [facility] Payers Date Payer Category Payer Private Health Insurance [id number] 2023 Self-pay [id number] 2023 Unknown [facility]/ [place] [address] [id number] 2015 Unknown [facility] [id number] 1960 Unknown [id number] Unknown [id number] Social History Date Type Detail Facility Start: 11-22-2020 End: 11-22-2020 Tobacco smoking status FLIS Unknown if ever smoked [facility] Start: 12-25-[address] [facility] Start: 12-25-2015 With Family [facility] Start: 01-11-2016 Non-smoker [facility] Start: 1960 Sex Assigned At Male [facility] Start: 1960 Sex assigned at Not on file [facility] Gender identity Not on file [facility] Procedure note 10-22-2022 Note Date & Type Note Facility 10-22-2022 Procedure note [facility] Evaluation note Note Date & Type Note Facility Evaluation note No assessment information availa ble [facility] Work Phone: Evaluation note Note Date & Type Note Facility Evaluation note Diagnosis Vocal cord dysfunction- Primary Other diseases of vocal cords documented in this encounter [facility] Reason for visit Narrative Speech Therapy (Routine) - Authorized Note Date & Type Note Facility Reason for visit Narrative Specialty Diagnoses / Procedures Referred By Kat t Referred To Contact Speech Pathology / Speech Therapy Diagnoses R. JADEN Procedures VOCAL CORD DYSFUNCTION Phoenix Sun MD [address] [place] [address] Phone: tel: fax: Sabrina La, [facility] [place] [address] Referral ID Status Reason Start Date Expiration Date V isits Requested Visits Authorized [id number] Authorized 05/21/2024 06/20/2024 60 60 [facility] Summary Purpose Family History No Family History Records Found Relationship Condition Age at Onset Recorded Date/T derian Unknown Family History?Diabetes Unknown 2015 6:58pm Family History?Diabetes Unknown October 02, 2020 6:49am Family History?No pe rtinent history Unknown October 02, 2020 6:49am Relationship Condition Age at Onset Recorded Date/T derian Unknown Family History?Diabetes Unknown 2015 7:58pm Family History?Diabetes Unknown October 02, 2020 7:49am Family History?No pe rtinent history Unknown October 02, 2020 7:49am Advance Directives No Advanced Directives Records Found Advance Directive Response Recorded Date/ Time Advance Directives No December 23, 2015 11:37pm Living Will No November 22 4:33pm Power of Coating Machine Operator No November 22, 2020 4:33pm Advance Directive Response Recorded Date/ Time Advance Directives No December 24, 2015 12:37am Living Will No November 22 021 5:33pm Power of Coating Machine Operator No November 22, 2020 5:33pm Chief Complaint and Reason for Visit Chief Complaint PARESTHESIA OF BILAT LEGS PARESTHESIA OF BILAT LEGS Chief Complaint E ORDERS Additional Source Comments (unrecognized sect ion and content) No Status Records FoundNo Status Records FoundNo Status Records Found INFORMATION SOURCE (unrecogn ized section and content) DATE CREATED AUTHOR 11/22/2018 [facility] DATE CREATED AUTHOR AUTHOR'S ORGANIZ ATION 04/07/2024 [facility] DATE CREATED AUTHOR AUTHOR'S ORGANIZ ATION 06/03/2024 [facility] Goals (unrecognized section and content) Goals may be documented in a n alternate sectionGoals may be documented in an alternate sectionGoals may be documented in an alternate sectionGoals may be documented in an alternate section Care Teams (unrecognized sec tion and content) Team Status: Active Member Role Status Dates Dr. Karen Ascencio MD Family Provider Active Dr. Karen Ascencio MD Primary Care Provider Active Team Status: Inactive Member Role Status Dates Dr. Karen Ascencio MD Primary Care Provider, Attending P moni Active Team Status: Active Member Role Status Dates Dr. Karen Ascencio MD Primary Care Provide r, Referring Provider, Other Provider Active Dr. Rachel Serna MD Attending Provider Active Team Status: Inactive Member Role Status Dates Dr. Karen Ascencio MD Primary Care Provide r, Attending Provider, Referring Provider Active Panel Raiser Operator Relationship Specialty Start Date End Date Karen Ascencio MD [address] [place] [address] PCP - General Family Medicine 06/01/24 FOR RECORDS PERTAINING TO PATIENTS WHO ARE OR HAVE BEEN ENROLLED IN A CHEMICAL DEPENDENCY/SUBSTANCEABUSE PROGRAM, SOME INFORMATION MAY BE OMITTED. This clinical summary was aggregated from multiple sources. Caution should be exercised in using it in the provision of clinical care. This summary normalizes information from multiple sources, and as a consequence, information in this document may materially change the coding, format and clinical context of patient data. In addition, data may be omitted in some cases. CLINICAL DECISIONS SHOULD BE BASED ON THE PRIMARY CLINICAL RECORDS. [facility]. provides no warranty or guarantee of the accuracy or completeness of information in this document.
[2024-08-31 11:21] LABS: PTHIN 44 pg/mL (11-61)
[2024-08-31 11:56] LABS: ALB/GLOB Ratio 1.5 RATIO (0.9-2.4); AST(SGOT) 30 U/L (<=37); Alanine Aminotransfer ALT/SGPT 33 U/L (<=46); Albumin, Serum 4.2 g/dL (3.4-4.8); Alkaline Phosphatase 88 U/L (40-129); Anion Gap 11 (5-15); BUN 13 mg/dL (4-19); CORTISOL AM 6.93 ug/dL (6.02-18.40); Calcium,Total 9.6 mg/dL (7.6-11.0); Carbon Dioxide 24.5 mmol/L (21.0-32.0); Chloride 106 mmol/L (98-108); Cholesterol 150 mg/dL (<=200); Creatinine, Serum 1.09 mg/dL (0.70-1.20); EST Glomerular Filtration Rate 76 (>60); Free T3 3.6 pg/mL (2.18-3.98); Globulin 2.8 g/dL (2.2-4.2); Glucose 94 mg/dL (70-99); High Density Lipoprotein 37 mg/dL; Low Density Lipoprotein Calc. 81 mg/dL; PSA,Total - Annual Screen 1.14 ng/mL (0.02-4.00); Potassium 4.2 mmol/L (3.3-5.1); Protein, Total 7.1 g/dL (5.9-8.4); Sodium Level 141 mmol/L (133-145); Triglycerides 162 mg/dL; Very Low Density Lipoprotein 32 mg/dL (5-40); cholesterol:hdl ratio screen 4.04
== END | disposition home or self-care (01) ==
LOC: MFPLAB 08:55
PROVIDERS: PCP Family Medicine; Referring Provider Family Medicine; Visit Provider Family Medicine
DX: E78.5 Hyperlipidemia, unspecified (principal); J45.30 Mild persistent asthma, uncomplicated; R68.89 Other general symptoms and signs; Z12.5 Encounter for screening for malignant neoplasm of prostate
CPT/HCPCS: 36415; 80053; 80061; 82533; 83970; 84153; 84439; 84443; 84481; 85025; G0103